=== PATIENT | female | born 1945 | race Caucasian/White ===

== ENCOUNTER 2017-03-22 17:03 | Inpatient (IN) ==
--- NOTE | 2017-03-22 17:05 | Emergency Department Note ---
Disposition Clinical Impression: Hypoxia, Dyspnea Disposition: Admitted As Inpatient Condition: Good General Adult HPI - General Stated complaint: SOB/HTN Time Seen by Provider: 03/22/17 17:04 - Related Data Home Medications Medication Instructions Recorded Confirmed Acetaminophen [Tylenol] 500 mg PO QAM PRN 03/02/15 03/22/17 Aspirin Enteric Coated [Aspirin EC] 81 mg PO QAM 03/02/15 03/22/17 Clopidogrel [Plavix] 75 mg PO QAM 03/02/15 03/22/17 Cyanocobalamin (B-12) [Vitamin B12] 1,000 mcg PO DAILY 12/29/15 03/22/17 Nitroglycerin 0.4 mg SL Q5MIN PRN 12/29/15 03/22/17 Calcium Carbonate/Vitamin D3 1 tab PO DAILY 01/04/16 03/22/17 [Calcium 600 + Vit D Tablet] Levothyroxine [Synthroid] [place] [address]/22/17 03/22/17 Previous Rx's Medication Instructions Recorded Furosemide [Lasix] 40 mg PO QAM #30 tablet 03/25/15 Lisinopril [Zestril] 20 mg PO DAILY #30 tablet 06/30/16 Anastrozole [Arimidex] 1 mg PO DAILY #90 tablet 10/24/16 Allergies Allergy/AdvReac Type Severity Reaction Status Date / Time simvastatin AdvReac Nausea Verified 03/22/17 17:16 Past Medical History - Past Medical History Medical history: Reports: asthma, atrial fibrillation, cancer, cardiomyopathy, CHF, coronary artery disease, diabetes, GERD, hyperlipidemia, hypertension, liver disease, myocardial infarction, thyroid disease, other Surgical history: Reports: angioplasty/stent, appendectomy, cancer surgery, cholecystectomy, coronary bypass (CABG), hysterectomy Psychiatric history: Reports: no psych history - Social History Smoking Status: Unknown if ever smoked Smokeless Tobacco Status: No Alcohol use: Reports: unknown Drug use: Reports: none Course Vital Signs Temperature 97.6 F 03/22/17 17:05 Pulse Rate 70 03/22/17 17:05 Respiratory Rate 20 03/22/17 17:05 Blood Pressure 179/100 03/22/17 17:05 O2 Sat by Pulse Oximetry 100 03/22/17 17:05 Temperature 98 F 03/23/17 07:23 Pulse Rate 74 03/23/17 07:23 Respiratory Rate 16 03/23/17 07:23 Blood Pressure 139/82 03/23/17 07:23 O2 Sat by Pulse Oximetry 99 03/23/17 07:23 Oxygen Delivery Oxygen Delivery Room Air Medical Decision Making - Lab Data Result diagrams: 03/23/17 04:43 03/23/17 04:43 Lab Results 03/22/17 03/22/17 03/22/17 Range/Units 17:23 17:23 17:23 WBC 4.3 (4.3-11.1) K/mcL RBC 4.22 (3.82-4.97) M/mcL Hgb 12.4 (11.5-15.4) g/dL Hct 39.2 (35.3-44.9) % MCV 92.9 (83.0-100.0) fL MCH 29.4 (28.0-33.3) pg MCHC 31.6 (31.6-35.5) g/dL RDW 14.7 H (11.5-14.5) % Plt Count 124 L (140-400) K/mcL MPV 11.3 (9.4-12.4) fL Immature Gran % 0.5 (0-4) % Seg Neutrophils % 65.2 % Lymphocytes % 23.1 % Monocytes % 8.2 % Eosinophils % 2.1 % Basophils % 0.9 % Neutrophils # 2.8 (1.6-8.9) K/mcL Lymphocytes # 1.0 (0.6-4.6) K/mcL Monocytes # 0.4 (0.0-1.3) K/mcL Eosinophils # 0.1 (0.0-0.6) K/mcL Basophils # 0.0 (0.0-0.2) K/mcL Immature Plt Fraction 7.5 H (1.1-6.1) % Sodium 139 (136-145) mEq/L Potassium 3.9 (3.5-4.5) mEq/L Chloride 103 (98-109) mEq/L Carbon Dioxide 28 (19-29) mEq/L BUN 19 (7-20) mg/dL Creatinine 1.14 H (0.57-1.11) mg/dL Est GFR ( Amer) 57 L (> 60) Est GFR (Non-Af Amer) 47 L (> 60) BUN/Creatinine Ratio 17 (6-26) Glucose 167 H (70-99) mg/dL Calculated Osmolality 294 (280-300) Calcium 9.1 (8.6-10.8) mg/dL Troponin I 0.03 (0-0.03) ng/mL B-Natriuretic Peptide (0-100) pg/mL 03/22/17 Range/Units 17:23 WBC (4.3-11.1) K/mcL RBC (3.82-4.97) M/mcL Hgb (11.5-15.4) g/dL Hct (35.3-44.9) % MCV (83.0-100.0) fL MCH (28.0-33.3) pg MCHC (31.6-35.5) g/dL RDW (11.5-14.5) % Plt Count (140-400) K/mcL MPV (9.4-12.4) fL Immature Gran % (0-4) % Seg Neutrophils % % Lymphocytes % % Monocytes % % Eosinophils % % Basophils % % Neutrophils # (1.6-8.9) K/mcL Lymphocytes # (0.6-4.6) K/mcL Monocytes # (0.0-1.3) K/mcL Eosinophils # (0.0-0.6) K/mcL Basophils # (0.0-0.2) K/mcL Immature Plt Fraction (1.1-6.1) % Sodium (136-145) mEq/L Potassium (3.5-4.5) mEq/L Chloride (98-109) mEq/L Carbon Dioxide (19-29) mEq/L BUN (7-20) mg/dL Creatinine (0.57-1.11) mg/dL Est GFR ( Amer) (> 60) Est GFR (Non-Af Amer) (> 60) BUN/Creatinine Ratio (6-26) Glucose (70-99) mg/dL Calculated Osmolality (280-300) Calcium (8.6-10.8) mg/dL Troponin I (0-0.03) ng/mL B-Natriuretic Peptide 175 H (0-100) pg/mL Attestation Statement - Attestation Attestation: I examined this patient and my medical decision-making was reviewed with the Resident Physician. I agree with the documented findings, disposition and treatment plan as described except to the extent set forth below. [id number] time provided Patient arrives by EMS complaining of dyspnea. She is visibly dyspneic on exam. She does have bilateral symmetric lower extremity peripheral edema. Patient seen in conjunction with the resident physician Dr. Joy
--- NOTE | 2017-03-22 17:11 | Emergency Department Note ---
Disposition Clinical Impression: Hypoxia Dyspnea Qualifiers: Dyspnea type: dyspnea on exertion Qualified Code(s): R06.09 - Other forms of dyspnea Disposition: Admitted As Inpatient Condition: Good Referrals: Joseph Cedeno DO [Primary Care Provider] - Time of Disposition: 18:19 General Adult HPI - General Stated complaint: SOB/HTN Time Seen by Provider: 03/22/17 17:04 Nursing Notes Reviewed: Yes Vital Signs Reviewed: Yes - History of Present Illness HPI Narrative: Female patient presents emergency department complaining of one-day history of shortness of breath. She states that she gets dyspneic on exertion. Denies any chest pain nausea vomiting or abdominal pain. Denies any inciting events. - Related Data Home Medications Medication Instructions Recorded Confirmed Acetaminophen [Tylenol] 500 mg PO QAM PRN 03/02/15 06/29/16 Aspirin Enteric Coated [Aspirin EC] 81 mg PO QAM 03/02/15 06/29/16 Clopidogrel [Plavix] 75 mg PO QAM 03/02/15 06/29/16 Cyanocobalamin (B-12) [Vitamin B12] 1,000 mcg PO DAILY 12/29/15 06/29/16 Nitroglycerin 0.4 mg SL Q5MIN PRN 12/29/15 06/29/16 Calcium Carbonate/Vitamin D3 1 tab PO DAILY 01/04/16 06/30/16 [Calcium 600 + Vit D Tablet] Carvedilol [Coreg] 6.25 mg PO BIDWM 06/30/16 06/30/16 Cholecalciferol (Vitamin D3) 50,000 unit PO QWEEK 06/30/16 06/30/16 [Vitamin D] amLODIPine [Norvasc] 5 mg PO DAILY 06/30/16 06/30/16 Previous Rx's Medication Instructions Recorded Furosemide [Lasix] 40 mg PO QAM #30 tablet 03/25/15 Levothyroxine [Synthroid] 100 [place] 0630 tablet 06/30/16 Lisinopril [Zestril] 20 mg PO DAILY #30 tablet 06/30/16 Anastrozole [Arimidex] 1 mg PO DAILY #90 tablet 10/24/16 Allergies Allergy/AdvReac Type Severity Reaction Status Date / Time simvastatin AdvReac Nausea Verified 03/22/17 17:16 All systems ED: reviewed and negative except as stated. Constitutional: Denies: fever, chills, weakness ENT ED: Denies: congestion Cardiovascular: Reports: dyspnea on exertion. Denies: chest pain, palpitations , syncope Respiratory: Reports: cough, dyspnea. Denies: sputum production Gastrointestinal: Denies: abdominal pain, nausea, vomiting, diarrhea, hematemesis, melena, hematochezia Genitourinary: Denies: urgency, dysuria, frequency, hematuria, discharge Musculoskeletal: Denies: back pain, neck pain Integumentary: Denies: rash, abrasion, lesions Neurological: Denies: headache, weakness, numbness, paresthesias Past Medical History - Past Medical History Attestation: Yes The following information was validated with the patient. Source: patient Medical history: Reports: asthma, atrial fibrillation, cancer, cardiomyopathy, CHF, coronary artery disease, diabetes, GERD, hyperlipidemia, hypertension, liver disease, myocardial infarction, thyroid disease, other Surgical history: Reports: angioplasty/stent, appendectomy, cancer surgery, cholecystectomy, coronary bypass (CABG), hysterectomy Psychiatric history: Reports: no psych history - Social History Smoking Status: Unknown if ever smoked Smokeless Tobacco Status: No Alcohol use: Reports: unknown Drug use: Reports: none Physical Exam - General Limitations: no limitations General appearance: alert, in no apparent distress - Head Head exam: atraumatic, normocephalic, normal inspection - Eye Eye exam: Present: normal appearance, PERRL, EOMI. Absent: scleral icterus - ENT ENT exam: normal exam, normal oropharynx, mucous membranes moist - Neck Neck exam: Present: normal inspection, full ROM, trachea midline - Chest Chest inspection: Present: normal inspection, symmetric chest wall rise - Respiratory Respiratory exam: Present: normal lung sounds bilaterally. Absent: respiratory distress, wheezes, stridor, accessory muscle use, prolonged expiratory phase - Cardiovascular Cardiovascular exam: Present: regular rate, normal rhythm, normal heart sounds - Abdominal Exam Abdominal exam: Present: soft, Non-Tender, normal bowel sounds. Absent: tenderness, distention, guarding, rebound, rigidity, organomegaly - Extremities Exam Extremities exam: Present: normal inspection, full ROM, normal capillary refill. Absent: tenderness, pedal edema - Back Exam Back exam: Present: normal inspection, full ROM. Absent: tenderness, CVA tenderness (R), CVA tenderness (L) - Neurological Exam Neurological exam: Present: alert, oriented X3, normal gait. Absent: motor sensory deficit - Psychiatric Psychiatric exam: Present: normal affect, normal mood - Skin Skin exam: Present: warm, dry, intact, normal color. Absent: rash, cyanosis, diaphoresis, erythema Course Course Narrative: Female patient presents to the emergency department, complaining of one day history of dyspnea. She states she has dyspnea on exertion as well. His have a history of COPD and CHF. States that she is not chronically on oxygen but when EMS placed her on oxygen she started to feel little better. Denies any fevers or chills. States that she does have a cough that is nonproductive. Denies any chest pain. Reports swelling to her bilateral lower extremities. She states that her right is swollen a little more than it generally is. They are swollen equally bilaterally. She states generally her left leg is a lot larger than right. On exam she is not appear to be in any distress currently. Her lung sounds are clear. Her heart tones are normal. Her abdomen is soft and nontender. Patient states that she can generally walk farther without getting short of breath and she can at this time. We will do a cardiac workup on patient and get her a chest x-ray as well. - Reevaluation(s) Reevaluation #1: Patient's workup was benign. She however had an ambulation trial. Her oxygen saturation dropped to 82%. We will admit patient for hypoxia. Of note she has been hypertensive down here. She denies any visual problems, headaches, or chest pain. I discussed her hypertension with her in the patient states that she was supposed to start some lisinopril tomorrow. She is very concerned about this. She states that she has been given blood pressure medication previously and her blood pressure has bottomed out every time. She expresses concern that last time she was admitted she received blood pressure medication and was taken to the floor. She states that there she then had a recent her blood pressure and a rapid response was called. She is refusing antihypertensive medication while down here. She states that she will reconsider this whenever she is on the floor. I will relay this to the hospitalist. Time: 18:15 - Consultations Consultation #1: BERRY Thompson accepted Pt in stable condition. Time: 18:30 Vital Signs Temperature 97.6 F 03/22/17 17:05 Pulse Rate 70 03/22/17 17:05 Respiratory Rate 20 08/26/17 17:05 Blood Pressure 179/100 03/22/17 17:05 O2 Sat by Pulse Oximetry 100 03/22/17 17:05 Temperature 97.6 F 03/22/17 17:05 Pulse Rate 78 03/22/17 18:02 Respiratory Rate 18 03/22/17 18:02 Blood Pressure 185/108 03/22/17 18:02 O2 Sat by Pulse Oximetry 100 03/22/17 18:02 Oxygen Delivery Oxygen Delivery Room Air Medical Decision Making - Medical Records Medical records reviewed: Yes I reviewed the patient's medical records. - Lab Data Lab results reviewed: Yes I reviewed the patient's lab results. Result diagrams: 03/22/17 17:23 03/22/17 17:23 Lab Results 03/22/17 03/22/17 03/22/17 Range/Units 17:23 17:23 17:23 WBC 4.3 (4.3-11.1) K/mcL RBC 4.22 (3.82-4.97) M/mcL Hgb 12.4 (11.5-15.4) g/dL Hct 39.2 (35.3-44.9) % MCV 92.9 (83.0-100.0) fL MCH 29.4 (28.0-33.3) pg MCHC 31.6 (31.6-35.5) g/dL RDW 14.7 H (11.5-14.5) % Plt Count 124 L (140-400) K/mcL MPV 11.3 (9.4-12.4) fL Immature Gran % 0.5 (0-4) % Seg Neutrophils % 65.2 % Lymphocytes % 23.1 % Monocytes % 8.2 % Eosinophils % 2.1 % Basophils % 0.9 % Neutrophils # 2.8 (1.6-8.9) K/mcL Lymphocytes # 1.0 (0.6-4.6) K/mcL Monocytes # 0.4 (0.0-1.3) K/mcL Eosinophils # 0.1 (0.0-0.6) K/mcL Basophils # 0.0 (0.0-0.2) K/mcL Immature Plt Fraction 7.5 H (1.1-6.1) % Sodium 139 (136-145) mEq/L Potassium 3.9 (3.5-4.5) mEq/L Chloride 103 (98-109) mEq/L Carbon Dioxide 28 (19-29) mEq/L BUN 19 (7-20) mg/dL Creatinine 1.14 H (0.57-1.11) mg/dL Est GFR ( Amer) 57 L (> 60) Est GFR (Non-Af Amer) 47 L (> 60) BUN/Creatinine Ratio 17 (6-26) Glucose 167 H (70-99) mg/dL Calculated Osmolality 294 (280-300) Calcium 9.1 (8.6-10.8) mg/dL Troponin I 0.03 (0-0.03) ng/mL B-Natriuretic Peptide (0-100) pg/mL 03/22/17 Range/Units 17:23 WBC (4.3-11.1) K/mcL RBC (3.82-4.97) M/mcL Hgb (11.5-15.4) g/dL Hct (35.3-44.9) % MCV (83.0-100.0) fL MCH (28.0-33.3) pg MCHC (31.6-35.5) g/dL RDW (11.5-14.5) % Plt Count (140-400) K/mcL MPV (9.4-12.4) fL Immature Gran % (0-4) % Seg Neutrophils % % Lymphocytes % % Monocytes % % Eosinophils % % Basophils % % Neutrophils # (1.6-8.9) K/mcL Lymphocytes # (0.6-4.6) K/mcL Monocytes # (0.0-1.3) K/mcL Eosinophils # (0.0-0.6) K/mcL Basophils # (0.0-0.2) K/mcL Immature Plt Fraction (1.1-6.1) % Sodium (136-145) mEq/L Potassium (3.5-4.5) mEq/L Chloride (98-109) mEq/L Carbon Dioxide (19-29) mEq/L BUN (7-20) mg/dL Creatinine (0.57-1.11) mg/dL Est GFR ( Amer) (> 60) Est GFR (Non-Af Amer) (> 60) BUN/Creatinine Ratio (6-26) Glucose (70-99) mg/dL Calculated Osmolality (280-300) Calcium (8.6-10.8) mg/dL Troponin I (0-0.03) ng/mL B-Natriuretic Peptide 175 H (0-100) pg/mL - Radiology Data Radiology results reviewed: Yes I reviewed the patient's radiology results. Chest X-Ray 03/22/17 17:08 IMPRESSION: 1. No acute cardiopulmonary disease. D/ / Ja Schroeder MD / Ja Schroeder MD Interpreting Provider: Ja Schroeder MD - EKG Data EKG #1 EKG attestation: Yes I reviewed and interpreted this EKG. EKG results narrative: Normal sinus rhythm with first-degree AV block. ND interval was not measured however it is elongated. QRS duration is 112. QT is 389. QTC is 413. No signs of acute ischemia. No significant change from EKG dated 06/29/2016.
[2017-03-22 17:30] LABS: Basophils % 0.9 %; Eosinophils # 0.1 K/mcL (0.0-0.6); Eosinophils % 2.1 %; Hematocrit 39.2 % (35.3-44.9); Hemoglobin 12.4 g/dL (11.5-15.4); Immature Granulocytes % 0.5 % (0-4); Immature Platelets 7.5 % (1.1-6.1); Lymphocytes % 23.1 %; Mean Corpuscular HGB Conc 31.6 g/dL (31.6-35.5); Mean Corpuscular Hemoglobin 29.4 pg (28.0-33.3); Mean Corpuscular Volume 92.9 fL (83.0-100.0); Mean Platelet Volume 11.3 fL (9.4-12.4); Monocytes # 0.4 K/mcL (0.0-1.3); Monocytes % 8.2 %; Neutrophils # 2.8 K/mcL (1.6-8.9); Platelet Count 124 K/mcL (140-400); Red Blood Count 4.22 M/mcL (3.82-4.97); Red Cell Distribution Width 14.7 % (11.5-14.5); Segmented Neutrophils % 65.2 %
[2017-03-22 17:46] LABS: Calcium 9.1 mg/dL (8.6-10.8); Potassium 3.9 mEq/L (3.5-4.5)
[2017-03-22] MEDS ORDERED: Naloxone 0.4 MG/ML INJ IVP PRN (19:38)
--- NOTE | 2017-03-22 19:58 | Internal Med History&Physical ---
<Nadia Lara - Last Filed: 03/22/17 21:38> Date of Encounter: 03/22/17 Time of Encounter: 19:50 Assessment and Plan (1) Dyspnea Current visit: Yes Status: Acute 1 patient has been experiencing increasing short of breath on exertion which is relieved with rest. She denies any chest pain, however she did have some R sided neck pain that resolved. This may be multifactoral, HTN CHF afib and possible COPD could be playing a role We will trend troponins. 2 continuous cardiac monitoring 3 continue with oxygen titrated to maintain SPO2 greater than 92% 4 she does have significant systolic heart failure as well as some hypertension and atrial fibrillation which could be contributing to her dyspnea and hypoxia. We will obtain cardiac echo. Clinically she does not appeared to be in fluid overload we will just give 1 dose of IV Lasix . We will adjust her Coreg to 12.5 twice a day. 5 we will rule out possibility of PE VQ scan due to patient has CK D 6 patient is exposed to secondhand smoke we will order PFTs as an outpatient Qualifiers: Dyspnea type: dyspnea on exertion Qualified Code(s): R06.09 - Other forms of dyspnea (2) Systolic heart failure, chronic Current visit: No Status: Chronic 1 hx of systolic HF with EF 35% she is on Lasix 40 mg daily she has chronic lower shoulder with swelling-she does not appear to be clinically in fluid overload, we will give one IV dose of Lasix and continue with her oral 2 monitor intake and output daily weight 3 with sodium diet 4 cardiac echo (3) CAD (coronary artery disease) Current visit: No Status: Chronic 1 she does have past history of coronary disease with stents will continue with her aspirin and Plavix statin as well as her Coreg. We will trend troponins 2 continue his cardiac monitoring 3 nitrates as needed Qualifiers: Coronary Disease-Associated Artery/Lesion type: bypass graft [place] vs. transplanted heart: [place] heart Associated angina: with unstable angina Qualified Code(s): I25.700 - Atherosclerosis of coronary artery bypass graft(s) , unspecified, with unstable angina pectoris (4) Atrial fibrillation Current visit: No Status: Chronic 1 is alive she appears to be in atrial fibrillation rate is controlled. She is not on any anticoagulation she is on aspirin and Plavix will continue with her Coreg. Not sure why patient is not on any anticoagulation-Saud Vasc score is 5- H Age sex CHF history hypertension history and diabetes. This will need to be address with patient per day team Qualifiers: Atrial fibrillation type: paroxysmal Qualified Code(s): I48.0 - Paroxysmal atrial fibrillation (5) Hypothyroidism Current visit: No Status: Chronic Obtain TSH continue with Synthroid Qualifiers: Hypothyroidism type: unspecified Qualified Code(s): E03.9 - Hypothyroidism , unspecified (6) Hypertension Current visit: No Status: Chronic 1 we will increase her Coreg to 12.5 twice a day as well as will continue her lisinopril. We will continue with Lasix 2 low sodium diet Qualifiers: Hypertension type: essential hypertension Qualified Code(s): I10 - Essential (primary) hypertension (7) DVT prophylaxis Current visit: No Status: Acute 1 Heparin subcutaneous Internal Medicine - H&P: HPI Chief complaint: SOB Admitted From: Emergency Dept Plans for Post Hospital Care: Home History of present illness: Ms. Lemos is a 71 year old female has history of CABG with 5 stents recent stent 2014 systolic heart failure atrial fib diabetes CK D3 breast cancer. Patient has been experiencing increasing shortness of breath on exertion she denies any chest pain or palpitations however she did experience some right- sided neck shoulder discomfort as well as some left arm numbness which resolved on its own and lasted just a few seconds. Shortness of breath improved with rest. She is normally not on any oxygen at home she does not have a cough fevers chills abdominal pain nausea or vomiting. She has chronic swelling to her lower extremities bilaterally. Shortness of breath continued throughout the day she became concerned and presented to the ER for evaluation. According to ER records for presentation patient appeared to be dyspneic and was placed on oxygen. Her respiratory state did not improve. Lab work was obtained which showed no leukocytosis creatinine was 1.14 which appears below her baseline troponin was 0.03 BNP was 175 which has been higher in the past. Chest x-ray was with no acute process. EKG was in atrial fibrillation rate is 72 nonspecific T-wave abnormalities. ER staff attempted to able a patient with oxygen sats did drop down into the 80s during ambulation. She has been admitted for further workup evaluation. Presently patient does not appear to be in respiratory distress she denies any shortness breath or chest pain at this time. Her lung sounds are clear throughout heart sounds are regular S1 and S2 with no rubs clicks murmurs noted. Abdomen soft nontender she does have lower extremity edema bilaterally. She is on oxygen 2 L nasal cannula. She is a little hypertensive with systolic 180 diastolic 100 this time Past Med Surg Social Fam HX - Past Medical History Medical history: asthma, atrial fibrillation, cancer, cardiomyopathy, CHF, coronary artery disease, diabetes, GERD, hyperlipidemia, hypertension, liver disease, myocardial infarction, thyroid disease, other Psychiatric history: no psych history - Past Surgical History Surgical History: angioplasty/stent, appendectomy, cancer surgery, cholecystectomy, coronary bypass (CABG), hysterectomy - Social History Smoking Status: Unknown if ever smoked Smokeless Tobacco Status: No Alcohol use: unknown Drug use: none - Family History Mother Family Member Ethnicity: Non- Living Status: Hx Family Cardiac Disorders: Yes (Coronary artery disease, hypertension) Hx Family Endocrine Disorder: Yes (Diabetes) Hx Family Neurologic Disorders: Yes (CVA) Brother Hx Family Endocrine Disorder: Yes (Diabetes) Sister Hx Family Cancer: Yes (Lung cancer) Hx Family Endocrine Disorder: Yes (Diabetes) Internal Medicine - H&P: Meds Acetaminophen [Tylenol] 500 mg PO QAM PRN 03/02/15 [History] Aspirin Enteric Coated [Aspirin EC] 81 mg PO QAM 03/02/15 [History] Clopidogrel [Plavix] 75 mg PO QAM 03/02/15 [History] Furosemide [Lasix] 40 mg PO QAM #30 tablet 03/25/15 [Rx] Cyanocobalamin (B-12) [Vitamin B12] 1,000 mcg PO DAILY 12/29/15 [History] Nitroglycerin 0.4 mg SL Q5MIN PRN 12/29/15 [History] Calcium Carbonate/Vitamin D3 [Calcium 600 + Vit D Tablet] 1 tab PO DAILY [History] Lisinopril [Zestril] 20 mg PO DAILY #30 tablet 06/30/16 [Rx] Anastrozole [Arimidex] 1 mg PO DAILY #90 tablet 10/24/16 [Rx] Levothyroxine [Synthroid] 125 mcg PO 0630 03/22/17 [History] 3 Allergy/AdvReac Type Severity Reaction Status Date / Time simvastatin AdvReac Nausea Verified 03/22/17 17:16 All Systems PM: A 10-system review of systems was performed and is negative for pertinent findings except as documented above in the HPI. - Constitutional Constitutional: no chills, no fever(s), no night sweats - EENT Eyes: no change in vision, no discharge, no pain, no photophobia Nose, mouth and throat: no dysphagia, no nasal discharge, no neck pain, no sore throat - Cardiovascular Cardiovascular ROS IM: dyspnea on exertion, edema, no chest pain, no diaphoresis , no dyspnea, no lightheadedness, no palpitations, no syncope - Respiratory Respiratory: cough, dyspnea on exertion, wheezing, no dyspnea, no excessive phlegm production - Gastrointestinal Gastrointestinal: no abdominal pain, no diarrhea, no hematemesis, no hematochezia, no melena, no nausea, no vomiting - Genitourinary Genitourinary: no change in urinary stream, no dysuria, no flank pain, no hematuria - Musculoskeletal Musculoskeletal ROS IM: no numbness, no tingling - Integumentary Integumentary IM: no rash, no unusual bruising - Neurological Neurological ROS: no confusion, no convulsions, no focal weakness, no numbness, no tingling, no tremor(s) - Hematologic/Lymphatic Hematologic/Lymphatic: no easy bruising - Constitutional Vitals: Temp Pulse Resp BP Pulse Ox 98.0 F 68 16 191/93 100 03/22/17 19:08 03/22/17 19:08 03/22/17 19:08 03/22/17 19:08 03/22/17 19:08 General appearance: Present: A&O X 3, answers questions appropriately - Head Head exam: Present: atraumatic, normocephalic - Eye Eye exam: Present: PERRL, conjuntiva pink, sclera anicteric Pupils: Present: PERRL - Neck Neck exam general surgery: Present: supple, trachea midline. Absent: lymphadenopathy - Respiratory Respiratory exam: Present: CTAB. Absent: accessory muscle use, rales, rhonchi, wheezes - Cardiovascular Cardiovascular exam: Present: RRR, +S1, +S2. Absent: diastolic murmur, gallop, rubs, systolic murmur - GI/Abdominal GI/Abdominal exam: Present: normal bowel sounds, soft, no peritoneal signs. Absent: distended, tenderness - Extremities Exam Extremities exam: Present: pedal edema - Neurological Exam Neurological exam: Present: CN II-XII intact, oriented X3, no focal deficits. Absent: pronater drift, facial droop, speech deficit - Skin Skin exam: Present: dry, intact Internal Med - H&P Results - Labs CBC & Chem 7: 03/22/17 17:23 03/22/17 17:23 - EKG Data Prior EKG available for review: yes EKG comments: 03/22/17 20:07 Afib - previous EKG with SR 03/22/17 20:07 - Diagnostic Studies Other Images Additional comments: Chest X-Ray 03/22/17 17:08 IMPRESSION: 1. No acute cardiopulmonary disease. D/ / Ja Schroeder MD / Ja Schroeder MD Interpreting Provider: Ja Schroeder MD <[email or web address] W - Last Filed: 03/22/17 22:44> Date of Encounter: 03/22/17 Internal Medicine - H&P: HPI History of present illness: Ms. Lemos is a 71 year old female All Systems PM: A 10-system review of systems was performed and is negative for pertinent findings except as documented above in the HPI. - Constitutional Vitals: Temp Pulse Resp BP Pulse Ox 98.0 F 68 16 191/93 100 03/22/17 19:08 03/22/17 19:08 03/22/17 19:08 03/22/17 19:08 03/22/17 19:08 Internal Med - H&P Results - Labs CBC & Chem 7: 03/22/17 17:23 03/22/17 17:23 - Attending Attestation Seen/examined. 71W with dyspnea/hypoxia on ambulation. Uncontrolled HTN. HFrEF. Not in fluid overload though has some peripheral edema. Optimize BP control. Lasix IV x 1. Check VQ scan, r/o PE. OP PFTs, history of second hand smoke exposure. Discussion with cardiology about anticoagulation due to history of a- fib, may need to stop Plavix to avoid triple therapy.
[2017-03-22] MEDS ORDERED: Furosemide 40 MG/4 ML VIAL IVP SCH (20:30)
[2017-03-22] MEDS ORDERED: Furosemide 40 MG/4 ML VIAL IVP ONE (20:34)
[2017-03-22] MEDS ORDERED: Furosemide 20 MG/2 ML VIAL IVP ONE (20:43)
[2017-03-22] MEDS ORDERED: Nitroglycerin 0.4 MG TAB.SUBL SL PRN (21:35)
--- NOTE | 2017-03-22 23:41 | Event Note ---
Date of Encounter: 03/22/17 Time of Encounter: 23:40 Noted troponin 0.04, no chest pain, will recheck in 6 hours
[2017-03-23 05:02] LABS: Basophils % 0.7 %; Eosinophils # 0.1 K/mcL (0.0-0.6); Eosinophils % 3.2 %; Hematocrit 39.1 % (35.3-44.9); Hemoglobin 12.5 g/dL (11.5-15.4); Immature Granulocytes % 0.7 % (0-4); Lymphocytes # 1.1 K/mcL (0.6-4.6); Lymphocytes % 27.3 %; Mean Corpuscular Hemoglobin 29.3 pg (28.0-33.3); Mean Corpuscular Volume 91.8 fL (83.0-100.0); Mean Platelet Volume 11.3 fL (9.4-12.4); Monocytes # 0.4 K/mcL (0.0-1.3); Monocytes % 10.6 %; Neutrophils # 2.3 K/mcL (1.6-8.9); Platelet Count 116 K/mcL (140-400); Red Blood Count 4.26 M/mcL (3.82-4.97); Red Cell Distribution Width 14.8 % (11.5-14.5); Segmented Neutrophils % 57.5 %
[2017-03-23 05:15] LABS: Calcium 9.1 mg/dL (8.6-10.8); Magnesium 2.2 mg/dL (1.6-2.6); Potassium 3.6 mEq/L (3.5-4.5)
[2017-03-23 05:36] LABS: Thyroid Stimulating Hormone 8.942 mcIU/mL (0.350-4.840)
[2017-03-23] MEDS: Furosemide 40 MG TABLET PO SCH (08:13)
[2017-03-23] MEDS: Lisinopril 20 MG TABLET PO SCH (08:13)
[2017-03-23] MEDS: Anastrozole 1 MG TABLET PO SCH (08:13)
[2017-03-23] MEDS: Aspirin Enteric Coated 81 MG Tablet PO SCH (08:13)
[2017-03-23] MEDS: Patient Taking Own Medication 1 EACH PO SCH (08:16)
[2017-03-23] MEDS ORDERED: Lisinopril 20 MG TABLET PO SCH (09:00)
[2017-03-23 10:32] LABS: Triiodothyronine (T3) Total 0.93 ng/mL (0.58-1.59)
--- NOTE | 2017-03-23 18:34 | Internal Med Progress Note ---
Date of Encounter: 03/23/17 Time of Encounter: 17:45 - Assessment and plan (1) Dyspnea Current Visit: Yes Status: Acute Assessment and plan: Patient currently denies shortness of breath above her norm. She states she has been able to ambulate to the bedside commode without limitation. Echocardiogram unchanged from prior readings. We are attempting to control her blood pressure, will observe overnight and likely discharge tomorrow pending clinical outcomes. Of note, repeat echocardiogram recommended with Definity- pending. VQ scan negative. ITS Impressions Chest X-Ray 03/22/17 17:08 IMPRESSION: 1. No acute cardiopulmonary disease. D/ / Ja Schroeder MD / Ja Schroeder MD Interpreting Provider: aJ Schroeder MD Pulmonary Perfusion Imaging 03/22/17 20:34 IMPRESSION: Very low probability for pulmonary embolism. D/ / Chinedu Davies MD / Chinedu Davies MD Interpreting Provider: Chinedu Davies MD Chest X-Ray 03/23/17 12:20 IMPRESSION: Stable portable study D/ / Zakiya Renteria Cha, MD / Zakiya Renteria Cha, MD Interpreting Provider: Zakiya Renteria Cha, MD (2) CHF (congestive heart failure) Current Visit: No Status: Chronic Assessment and plan: Echocardiogram revealing ejection fraction of 35% with indeterminate diastolic function. She is on diuretics at home. On examination, she is euvolemic. 2. Today's echo with echocardiogram from May 2016 without acute changes. Chronic combined heart failure without acute exacerbation. Echocardiogram with recommendation to repeat with Def[facility]-Will order at this time. Echocardiogram impressions: LVEF 35%. Mild concentric left ventricular hypertrophy. Indeterminate diastolic function. Global left ventricular systolic dysfunction. Normal right ventricular structure and function. Mild mitral regurgitation. No evidence of pulmonary hypertension. Recommend repeat study with Def[facility] to evaluate for possible thrombus in the LV apex. (3) Elevated troponin I level Current Visit: Yes Status: Acute Assessment and plan: Mild, stable, adynamic and peaking at 0.04. Patient denies chest pain. Consistent with accelerated hypertension. (4) CKD (chronic kidney disease) stage 3, GFR 30-59 ml/min Current Visit: Yes Status: Chronic Assessment and plan: Stable and consistent with her baseline. (5) Anxiety Current Visit: No Status: Chronic Assessment and plan: Mood and affect stable (6) DVT prophylaxis Current Visit: No Status: Acute Assessment and plan: We will avoid heparin given her mild thrombocytopenia. Observation patient. IPC's ordered. (7) CAD (coronary artery disease) Current Visit: No Status: Chronic Assessment and plan: Patient denies chest pain or shortness of breath. Qualifiers: Coronary Disease-Associated Artery/Lesion type: bypass graft [place] vs. transplanted heart: [place] heart Associated angina: with unstable angina Qualified Code(s): I25.700 - Atherosclerosis of coronary artery bypass graft(s) , unspecified, with unstable angina pectoris (8) Atrial fibrillation Current Visit: No Status: Chronic Assessment and plan: Rate controlled, not on anticoagulation therapy due to her history of Crohn's and prior GI bleeding Qualifiers: Atrial fibrillation type: paroxysmal Qualified Code(s): I48.0 - Paroxysmal atrial fibrillation (9) HTN (hypertension) Current Visit: No Status: Chronic Assessment and plan: Markedly hypertensive upon presentation. She is now normotensive. At home, she takes lisinopril 10 mg daily, furosemide 40 mg daily. Lisinopril dosage was increased to 30 mg daily. Of note, patient stating that if her diastolic pressure ever drops below 80, then she feels as if she has no energy and feels miserable. We will continue to trend and adjust medications as indicated. Possible discharge tomorrow pending clinical outcomes. Qualifiers: Hypertension type: unspecified Qualified Code(s): I10 - Essential (primary ) hypertension (10) Dyslipidemia Current Visit: No Status: Chronic Assessment and plan: Lipid panel abnormal with LDL 204 total cholesterol 209. Patient has an intolerance to [id number] outpatient low-cholesterol diet recommended. (11) Hypothyroidism Current Visit: No Status: Chronic Assessment and plan: TSH was elevated however T3 and free T4 both normal. Follow-up outpatient Qualifiers: Hypothyroidism type: unspecified Qualified Code(s): E03.9 - Hypothyroidism , unspecified - Subjective Interval history: Patient seen and examined. On examination, patient sitting upright in her bed reading the newspaper. Patient stating she is feeling better. She states her shortness of breath has almost returned down to its baseline. She states she has been able to get up to ambulate to the bedside commode without limitation, lightheadedness, or dizziness. She is endorsing a normal appetite. Denies pain at this time. - Constitutional Vitals: Temp Pulse Resp BP Pulse Ox 97.9 F 72 16 112/76 97 03/23/17 15:20 03/23/17 15:20 03/23/17 15:20 03/23/17 15:20 03/23/17 15:20 General appearance: Present: A&O X 3, pleasant, no acute distress, answers questions appropriately - Head Head exam: Present: atraumatic, normocephalic - Eye Eye exam: Present: PERRL, conjuntiva pink, sclera anicteric Pupils: Present: PERRL - Neck Neck exam general surgery: Present: supple, trachea midline. Absent: lymphadenopathy - Respiratory Respiratory exam: Present: CTAB. Absent: accessory muscle use, rales, respiratory distress, rhonchi, wheezes - Cardiovascular Cardiovascular exam: Present: RRR, +S1, +S2. Absent: diastolic murmur, gallop, rubs, systolic murmur - GI/Abdominal GI/Abdominal exam: Present: normal bowel sounds, soft, no peritoneal signs. Absent: distended, tenderness - Extremities Exam Extremities exam: Present: warm, radial pulses palpable and symmetrical. Absent : calf tenderness, cyanotic, pedal edema - Neurological Exam Neurological exam: Present: alert, CN II-XII intact, normal gait, oriented X3, no focal deficits, strengths equal and symetr throughout. Absent: pronater drift, facial droop, speech deficit - Skin Skin exam: Present: dry, intact, normal color, warm Internal Medicine: Result - Labs CBC & Chem 7: 03/23/17 04:43 03/23/17 04:43 Labs: Short CBC 03/23/17 Range/Units 04:43 WBC 4.1 L (4.3-11.1) K/mcL Hgb 12.5 (11.5-15.4) g/dL Hct 39.1 (35.3-44.9) % Plt Count 116 L (140-400) K/mcL Neutrophils # 2.3 (1.6-8.9) K/mcL BMP 03/23/17 04:43 Sodium 141 Potassium 3.6 Chloride 102 Carbon Dioxide 32 H BUN 19 Creatinine 1.11 Glucose 133 H Calcium 9.1 Cardiac Enzymes 03/22/17 03/23/17 Range/Units 23:03 04:43 Troponin I 0.04 H* 0.04 H* (0-0.03) ng/mL - Impressions Impressions Pulmonary Perfusion Imaging 03/22/17 20:34 IMPRESSION: Very low probability for pulmonary embolism. D/ / Chinedu Davies MD / Chinedu Davies MD Interpreting Provider: Chinedu Davies MD Chest X-Ray 03/23/17 12:20 IMPRESSION: Stable portable study D/ / Zakiya Renteria Cha, MD / Zakiya Renteria Cha, MD Interpreting Provider: Zakiya Renteria Cha, MD Consult Discharge Plan - Plan
[2017-03-24 05:16] LABS: Calcium 9.3 mg/dL (8.6-10.8); Potassium 3.9 mEq/L (3.5-4.5)
[2017-03-24] MEDS: Aspirin Enteric Coated 81 MG Tablet PO SCH (09:26)
[2017-03-24] MEDS: Furosemide 40 MG TABLET PO SCH (09:26)
[2017-03-24] MEDS: Anastrozole 1 MG TABLET PO SCH (09:27)
[2017-03-24] MEDS: Lisinopril 20 MG TABLET PO SCH (09:28)
[2017-03-24] MEDS: Patient Taking Own Medication 1 EACH PO SCH (09:30)
--- NOTE | 2017-03-24 09:57 | Electrocardiograph Report ---
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
[2017-03-24] MEDS ORDERED: Perflutren Lipid Microsphere 1.3 ML in 0.9 % Sodium Chloride 8.7 ML IVP ONE (10:31)
[2017-03-24 11:58] VITALS: BP 167/83
--- NOTE | 2017-03-24 13:19 | Discharge Summary ---
Date of Encounter: 03/24/17 Time of Encounter: 13:00 - Discharge Diagnosis (1) Dyspnea Priority: Primary Status: Resolved (2) CHF (congestive heart failure) Priority: Secondary Status: Chronic Comments: Echocardiogram revealing ejection fraction of 35% with indeterminate diastolic function. She is on diuretics at home. On examination, she is euvolemic. Compared this visit's echo with echocardiogram from May 2016 without acute changes. Chronic combined heart failure without acute exacerbation. Echocardiogram with recommendation to repeat with Definity-repeat unremarkable. (3) Elevated troponin I level Priority: Primary Status: Acute Comments: Mild, stable, adynamic and peaking at 0.04. Patient denied chest pain while admitted. Consistent with demand ischemia secondary to accelerated hypertension. (4) CKD (chronic kidney disease) stage 3, GFR 30-59 ml/min Priority: Secondary Status: Chronic Comments: Remained stable and consistent with her baseline during this admission. Follow- up outpatient. (5) Anxiety Priority: Secondary Status: Chronic Comments: Mood and affect stable while admitted. (6) DVT prophylaxis Priority: Primary Status: Acute Comments: Avoided heparin given her mild thrombocytopenia. Observation patient. IPC's ordered. (7) CAD (coronary artery disease) Priority: Secondary Status: Chronic Qualifiers: Coronary Disease-Associated Artery/Lesion type: bypass graft [place] vs. transplanted heart: sam[place] heart Associated angina: with unstable angina Qualified Code(s): I25.700 - Atherosclerosis of coronary artery bypass graft(s) , unspecified, with unstable angina pectoris (8) Atrial fibrillation Priority: Secondary Status: Chronic Comments: Rate controlled, not on anticoagulation therapy due to her history of Crohn's and prior GI bleeding Qualifiers: Atrial fibrillation type: paroxysmal Qualified Code(s): I48.0 - Paroxysmal atrial fibrillation (9) HTN (hypertension) Priority: Secondary Status: Chronic Comments: Markedly hypertensive upon presentation. Much better controlled after her Lisinopril dosage was increased. At home, she took lisinopril 10 mg daily, furosemide 40 mg daily. Lisinopril dosage was increased to 30 mg daily. Of note, patient stating that if her diastolic pressure ever drops below 80, then she feels as if she has no energy and feels miserable. Recommend continue daily blood pressure checks and following up outpatient Qualifiers: Hypertension type: unspecified Qualified Code(s): I10 - Essential (primary ) hypertension (10) Dyslipidemia Priority: Secondary Status: Chronic Comments: Lipid panel abnormal with LDL 204 total cholesterol 209. Patient has an intolerance to [id number] outpatient low-cholesterol diet recommended. (11) Hypothyroidism Priority: Secondary Status: Chronic Comments: TSH was elevated however T3 and free T4 both normal. Follow-up outpatient Qualifiers: Hypothyroidism type: unspecified Qualified Code(s): E03.9 - Hypothyroidism , unspecified - Discharge Medications Prescriptions: Lisinopril [Zestril] 30 mg PO DAILY PRN #45 tab PRN Reason: hypertension Home Medications: Acetaminophen [Tylenol] 500 mg PO QAM PRN 03/02/15 [History] Aspirin Enteric Coated [Aspirin EC] 81 mg PO QAM 03/02/15 [History] Clopidogrel [Plavix] 75 mg PO QAM 03/02/15 [History] Furosemide [Lasix] 40 mg PO QAM #30 tablet 03/25/15 [Rx] Nitroglycerin 0.4 mg SL Q5MIN PRN 12/29/15 [History] Calcium Carbonate/Vitamin D3 [Calcium 600 + Vit D Tablet] 1 tab PO DAILY [History] Anastrozole [Arimidex] 1 mg PO DAILY #90 tablet 10/24/16 [Rx] Levothyroxine [Synthroid] 100 mcg PO DAILY 03/22/17 [History] Lisinopril [Zestril] 30 mg PO DAILY PRN #45 tab 03/24/17 [Rx] Allergies/Adverse Reactions: 3 Allergy/AdvReac Type Severity Reaction Status Date / Time simvastatin AdvReac Nausea Verified 03/22/17 17:16 Date of admission: 03/23/17 18:48 Primary care physician: Joseph Cedeno DO Discharging clinician: Nikkie Pratt Anticipated date of discharge: 03/24/17 - Patient Status Disposition: Home, Self-Care Condition: Good Functional capacity at discharge: independent ambulation Overall status at discharge: patient is back to baseline - Discharge Instructions Follow Up With: Joseph Cedeno DO [Primary Care Provider] - Forms: ED Satisfaction Letter Additional Instructions: Follow-up with primary care provider within 1-2 weeks. Check blood pressure daily and keep a log for your primary care provider. - Diet and Activity Activity: increase activity as tolerated Diet: diabetic diet, low fat, low cholesterol (Fluid restriction 1.5 L per day) , low salt diet Hospital course: Ms. Lemos is a 71 year old female with past medical history of CAD status post CABG and stent 5, heart failure, atrial fibrillation, diabetes, chronic kidney disease stage III, breast cancer, GERD, hyperlipidemia, hypertension, appendectomy, cholecystectomy, hysterectomy. Patient presented to the emergency department chief complaint of increasing shortness of breath on exertion. She denied chest pain, palpitations. She did endorse right-sided neck and shoulder discomfort as well as left arm numbness which resolved on its own and lasted just a few seconds. Patient stating her shortness of breath had improved with rest. She is not on oxygen at home. She denied cough, fevers, chills, abdominal pain nausea or vomiting. She stated she had pedal edema but this is chronic for her. According to ER reports, patient was dyspneic and was placed on oxygen. This did not improve her respiratory status. Patient also with accelerated hypertension upon arrival with initial blood pressure 179/100. Otherwise, workup in the emergency department unremarkable however the ER staff attempted to ambulate patient and her oxygen levels dropped into the 80s with ambulation. Chest x-ray negative. Patient was admitted to the hospitalist service for further evaluation and management. VQ scan ruled out a PE. Patient was on room air and stated her dyspnea had returned to her baseline while admitted. She was admitted and observed over the course of 2 nights. Mild troponin elevation of 0.04, adynamic and flat, likely secondary to demand ischemia secondary to uncontrolled hypertension. Her lisinopril dosage was increased and her blood pressure improved. Of note, patient was reluctant to having her blood pressure decreased because she feels as if her diastolic blood pressure ever drops below 80 that this makes her feel as if she has no energy and makes her feel miserable. She was amenable to increasing her dose but stated that she would only take it on an as-needed basis. Her TSH was elevated however T3 and T4 were both normal. Her atrial fibrillation rate was controlled, she is not on anticoagulation therapy due to her history of Crohn's disease and prior GI bleeds. We performed an echocardiogram that revealed an ejection fraction of 35% with indeterminate diastolic function. Initial echocardiogram did have a concern for possible thrombus however repeat with Definity was negative. This echocardiogram was compared to prior report from May 2016 without acute changes. Patient felt she was euvolemic during this admission. She denied chest pain or shortness of breath above her norm throughout this admission. She was able to ambulate around her room without limitations. She was discharged home in stable condition with close outpatient follow-up recommended. Of note, we attempted to give the patient carvedilol but she refused. ITS Impressions Chest X-Ray 03/22/17 17:08 IMPRESSION: 1. No acute cardiopulmonary disease. D/ / Ja Schroeder MD / Ja Schroeder MD Interpreting Provider: Ja Schroeder MD Pulmonary Perfusion Imaging 03/22/17 20:34 IMPRESSION: Very low probability for pulmonary embolism. D/ / Chinedu Davies MD / Chinedu Davies MD Interpreting Provider: Chinedu Davies MD Chest X-Ray 03/23/17 12:20 IMPRESSION: Stable portable study D/ / Zakiya Renteria Cha, MD / Zakiya Renteria Cha, MD Interpreting Provider: Zakiya Renteria Cha, MD Echocardiogram impressions: LVEF 35%. Mild concentric left ventricular hypertrophy. Indeterminate diastolic function. Global left ventricular systolic dysfunction. Normal right ventricular structure and function. Mild mitral regurgitation. No evidence of pulmonary hypertension. Recommend repeat study with Definity to evaluate for possible thrombus in the LV apex. Limited Echo with Imaging Enhancement Agent Date of Study: 03/24/2017 Indications: Evaulate for thrombus/source of embolus Impressions: LVEF 35-40%. Definity was given. There is no evidence of left ventricular thrombus. Left ventricle is mildly dilated. Mild to moderate concentric hypertrophy of the left ventricle. - Time Spent with Patient Total time spent providing and/or coordinating discharge services: - Constitutional Vitals: Temp Pulse Resp BP Pulse Ox 96.6 F L 72 15 167/83 97 03/24/17 11:54 03/24/17 11:54 03/24/17 11:54 03/24/17 11:54 03/24/17 11:54 General appearance: Present: A&O X 3, pleasant, no acute distress, answers questions appropriately - Head Head exam: Present: atraumatic, normocephalic - Eye Eye exam: Present: PERRL, conjuntiva pink, sclera anicteric Pupils: Present: PERRL - Neck Neck exam general surgery: Present: supple, trachea midline. Absent: lymphadenopathy - Respiratory Respiratory exam: Present: CTAB. Absent: accessory muscle use, rales, respiratory distress, rhonchi, wheezes - Cardiovascular Cardiovascular exam: Present: RRR, +S1, +S2. Absent: diastolic murmur, gallop, rubs, systolic murmur - GI/Abdominal GI/Abdominal exam: Present: normal bowel sounds, soft, no peritoneal signs. Absent: distended, tenderness - Extremities Exam Extremities exam: Present: pedal edema (trace, nonpitting), warm, radial pulses palpable and symmetrical. Absent: calf tenderness, cyanotic - Neurological Exam Neurological exam: Present: alert, CN II-XII intact, normal gait, oriented X3, no focal deficits, strengths equal and symetr throughout. Absent: pronater drift, facial droop, speech deficit - Skin Skin exam: Present: dry, intact, normal color, warm
--- NOTE | 2017-03-24 17:23 | Electrocardiograph Report ---
[place] [id number] Test Date: 2017-03-22 Pat Name: Ilana Lemos Department: 104 Room: 3B33 Gender: F Optometric Tech: NELA : 1945 Requested By: Lorelei Joy Order Number: [id number] Reading MD: Susan Yo Measurements Intervals [place] Rate: 72 P: [place]: 0 QRS: 5 QRSD: 112 T: 153 QT: 389 QTc: 413 Interpretive Statements ATRIAL FIBRILLATION WITH ABERRANT CONDUCTION OR VENTRICULAR PREMATURE COMPLEXES INTRAVENTRICULAR CONDUCTION DELAY NONSPECIFIC T-WAVE ABNORMALITY Electronically Signed On 03-24-2017 17:21:37 EDT by Susan Yo
== END 2017-03-24 14:40 | disposition home or self-care (01) | DRG 292 ==
LOC: EMEROO 17:03 → 3BNU 17:03
PROVIDERS: ADMIT Nurse Practitioner Family; ATTEND Nurse Practitioner Family

== ENCOUNTER 2017-04-29 06:45 | Observation (INO) ==
[2017-04-29] MEDS ORDERED: Aspirin 81 MG TAB.CHEW PO ONE (06:55)
[2017-04-29 07:06] LABS: Basophils % 0.9 %; Eosinophils # 0.1 K/mcL (0.0-0.6); Eosinophils % 2.4 %; Hematocrit 42.3 % (35.3-44.9); Hemoglobin 13.6 g/dL (11.5-15.4); Immature Granulocytes % 0.7 % (0-4); Lymphocytes # 1.1 K/mcL (0.6-4.6); Lymphocytes % 24.7 %; Mean Corpuscular HGB Conc 32.2 g/dL (31.6-35.5); Mean Corpuscular Hemoglobin 29.1 pg (28.0-33.3); Mean Corpuscular Volume 90.6 fL (83.0-100.0); Mean Platelet Volume 11.6 fL (9.4-12.4); Monocytes # 0.4 K/mcL (0.0-1.3); Monocytes % 9.6 %; Neutrophils # 2.8 K/mcL (1.6-8.9); Platelet Count 123 K/mcL (140-400); Red Blood Count 4.67 M/mcL (3.82-4.97); Red Cell Distribution Width 13.8 % (11.5-14.5); Segmented Neutrophils % 61.7 %
[2017-04-29 07:45] LABS: Bilirubin,Urine Negative (Negative); Blood,Urine Negative (Negative); Clarity,Urine Clear (Clear); Color,Urine Yellow (Yellow); Glucose,Urine (UA) Normal (Normal); Ketones,Urine Negative (Negative); Leukocyte Esterase,Urine Moderate (Negative); Nitrite,Urine Negative (Negative); Protein,Urine Negative (Neg-Trace); Specific Gravity,Urine 1.007 (1.010-1.025); Urobilinogen,Urine Normal (Normal)
[2017-04-29 07:48] LABS: Bacteria,Urine None Seen per hpf (None-Few); Hyaline Casts,Urine None Seen per lpf (None-Few); RBC,Urine 0-3 per hpf (0-3); Squamous Epithelial Cell,Urine Many per lpf (None-Few); WBC,Urine 15-30 per hpf (0-3)
[2017-04-29 07:49] LABS: BUN/Creatinine Ratio 15 (6-26); Blood Urea Nitrogen 14 mg/dL (7-20); Calcium 9.2 mg/dL (8.6-10.8); Carbon Dioxide 26 mEq/L (19-29); Chloride 106 mEq/L (98-109); Glucose 133 mg/dL (70-99); Osmolality,Calculated 292 (280-300); Potassium 4.1 mEq/L (3.5-4.5); Sodium 140 mEq/L (136-145); eGFR For African Americans > 60 (> 60); eGFR For Non-African Americans > 60 (> 60)
--- NOTE | 2017-04-29 08:12 | Emergency Department Note ---
Disposition Clinical Impression: Hypertensive urgency Dyspnea Qualifiers: Dyspnea type: dyspnea on exertion Qualified Code(s): R06.09 - Other forms of dyspnea Disposition: Admitted As Inpatient Condition: Fair SOB HPI - General Chief Complaint: ED Shortness of Breath/Dyspnea Stated Complaint: difficulty breathing Time Seen by Provider: 04/29/17 06:48 Source: patient, EMS Mode of arrival: private vehicle Limitations: no limitations Nursing Notes Reviewed: Yes Vital Signs Reviewed: Yes - History of Present Illness Pt Subjective Complaint: shortness of breath Onset (ago): Just [employer] Context: other (Was awakened by feeling short of breath) Severity: moderate, now resolved Consistency/Duration: now resolved Improves with: nothing Worsens with: nothing Known history of: COPD, congestive heart failure Associated symptoms: Denies: chest pain, pain with inspiration, fever, cough, wheezing, sputum production, orthopnea, lower extremity pain, polyuria, polydipsia, parasthesias, palpitations, hemoptysis, diaphoresis, nausea/vomiting , syncope, abdominal pain, rash, sense of impending doom Treatment prior to arrival: oxygen Cough present: No Sputum Amount: None - Related Data Home oxygen amount: none Home Medications Medication Instructions Recorded Confirmed Acetaminophen [Tylenol] 500 mg PO QAM PRN 03/02/15 03/23/17 Aspirin Enteric Coated [Aspirin EC] 81 mg PO QAM 03/02/15 03/23/17 Clopidogrel [Plavix] 75 mg PO QAM 03/02/15 03/23/17 Nitroglycerin 0.4 mg SL Q5MIN PRN 12/29/15 03/23/17 Calcium Carbonate/Vitamin D3 1 tab PO DAILY 01/04/16 03/23/17 [Calcium 600 + Vit D Tablet] Levothyroxine [Synthroid] 100 mcg PO DAILY 03/22/17 03/23/17 Previous Rx's Medication Instructions Recorded Furosemide [Lasix] 40 mg PO QAM #30 tablet 03/25/15 Anastrozole [Arimidex] 1 mg PO DAILY #90 tablet 10/24/16 Lisinopril [Zestril] 30 mg PO DAILY PRN #45 tab 03/24/17 Allergies Allergy/AdvReac Type Severity Reaction Status Date / Time simvastatin AdvReac Nausea Verified 03/22/17 17:16 All systems ED: reviewed and negative except as stated. Review of Systems: As Per HPI Constitutional: Denies: fever, chills, weakness, night sweats Eyes: Denies: vision change ENT ED: Denies: throat pain, congestion, dysphagia Cardiovascular: Reports: dyspnea on exertion. Denies: chest pain, palpitations , orthopnea, edema, syncope Respiratory: Reports: as per HPI, dyspnea. Denies: cough, wheezes, hemoptysis, stridor, sputum production Gastrointestinal: Denies: abdominal pain, nausea, vomiting, diarrhea Genitourinary: Denies: urgency, dysuria, frequency, hematuria Neurological: Denies: headache, weakness, numbness, paresthesias Hematological/Lymphatic: Denies: easy bleeding, easy bruising, lymphadenopathy Past Medical History - Past Medical History Attestation: Yes The following information was validated with the patient. Source: patient Medical history: Reports: asthma, atrial fibrillation, cancer, cardiomyopathy, CHF, coronary artery disease, diabetes, GERD, hyperlipidemia, hypertension, liver disease, myocardial infarction, thyroid disease, other Surgical history: Reports: angioplasty/stent, appendectomy, cancer surgery, cholecystectomy, coronary bypass (CABG), hysterectomy Psychiatric history: Reports: no psych history - Social History Smoking Status: Unknown if ever smoked Smokeless Tobacco Status: No Alcohol use: Reports: unknown Drug use: Reports: none Physical Exam - General Limitations: no limitations General appearance: alert, in no apparent distress - Head Head exam: atraumatic, normocephalic, normal inspection - Eye Eye exam: Present: normal appearance, PERRL, EOMI. Absent: scleral icterus, conjunctival injection, periorbital swelling - ENT ENT exam: normal exam, normal oropharynx - Neck Neck exam: Present: normal inspection, full ROM, trachea midline. Absent: tenderness, meningismus - Chest Chest inspection: Present: normal inspection, symmetric chest wall rise - Respiratory Respiratory exam: Present: normal lung sounds bilaterally. Absent: respiratory distress, wheezes, stridor, accessory muscle use, prolonged expiratory phase - Cardiovascular Cardiovascular exam: Present: regular rate, normal rhythm, normal heart sounds. Absent: systolic murmur, diastolic murmur - Abdominal Exam Abdominal exam: Present: soft, Non-Tender. Absent: mass, pulsatile mass - Extremities Exam Extremities exam: Present: full ROM, normal capillary refill, pedal edema. Absent: tenderness, joint swelling, calf tenderness - Back Exam Back exam: Present: normal inspection - Neurological Exam Neurological exam: Present: alert, oriented X3, CN II-XII intact - Psychiatric Psychiatric exam: Present: normal affect, normal mood - Skin Skin exam: Present: warm, dry, intact, normal color Course Course Narrative: Patient presents for evaluation of dyspnea that woke her up. It has resolved. She is not sure what made it better. She is very hypertensive and states that she does not feel comfortable taking her blood pressure medication because she had an adverse reaction to one of her blood pressure medications. At one point and "nearly ". She denies chest pain, cough or hemoptysis, fever, chills, nausea or vomiting. She also denies headache, vision changes, ringing in the ears, unilateral weakness, speech problems, ataxia or vertigo. X-ray shows stable cardiomegaly, no signs of acute failure. She has remained afebrile with normal oxygen saturation, normal heart rate, and elevated blood pressure since arrival. Her lab work does not reflect an infectious process. Ambulatory. Vitals were obtained. Her heart rate was 1:15, and her oxygen saturation was 97 % on room air. She did describe feeling short of breath however. Given her elevated blood pressure, reluctance to use her blood pressure medication, dyspnea on exertion, history of coronary artery disease, and her age, we feel that admission for further evaluation and management of her dyspnea and hypertension is warranted. Case was discussed with Dr. Perez. He has had face- to-face time with patient and agrees with the assessment and plan. Vital Signs Temperature 98 F 04/29/17 06:52 Pulse Rate 67 04/29/17 06:52 Respiratory Rate 18 04/29/17 06:52 Blood Pressure 211/123 04/29/17 06:52 O2 Sat by Pulse Oximetry 98 04/29/17 06:52 Temperature 98 F 04/29/17 06:52 Pulse Rate 67 04/29/17 06:52 Respiratory Rate 18 04/29/17 06:52 Blood Pressure 211/123 04/29/17 06:52 O2 Sat by Pulse Oximetry 98 04/29/17 06:52 Oxygen Delivery Oxygen Delivery Room Air Shortness of Breath/Dyspnea - Medical Records Medical records reviewed: Yes I reviewed the patient's medical records. - Lab Data Lab results reviewed: Yes I reviewed the patient's lab results. Lab results narrative: Laboratory Last Values WBC 4.5 K/mcL (4.3-11.1) 04/29/17 06:58 RBC 4.67 M/mcL (3.82-4.97) 04/29/17 06:58 Hgb 13.6 g/dL (11.5-15.4) 04/29/17 06:58 Hct 42.3 % (35.3-44.9) 04/29/17 06:58 MCV 90.6 fL (83.0-100.0) 04/29/17 06:58 MCH 29.1 pg (28.0-33.3) 04/29/17 06:58 MCHC 32.2 g/dL (31.6-35.5) 04/29/17 06:58 RDW 13.8 % (11.5-14.5) 04/29/17 06:58 Plt Count 123 K/mcL (140-400) L 04/29/17 06:58 MPV 11.6 fL (9.4-12.4) 04/29/17 06:58 Immature Gran % 0.7 % (0-4) 04/29/17 06:58 Seg Neutrophils % 61.7 % 04/29/17 06:58 Lymphocytes % 24.7 % 04/29/17 06:58 Monocytes % 9.6 % 04/29/17 06:58 Eosinophils % 2.4 % 04/29/17 06:58 Basophils % 0.9 % 04/29/17 06:58 Neutrophils # 2.8 K/mcL (1.6-8.9) 04/29/17 06:58 Lymphocytes # 1.1 K/mcL (0.6-4.6) 04/29/17 06:58 Monocytes # 0.4 K/mcL (0.0-1.3) 04/29/17 06:58 Eosinophils # 0.1 K/mcL (0.0-0.6) 04/29/17 06:58 Basophils # 0.0 K/mcL (0.0-0.2) 04/29/17 06:58 Sodium 140 mEq/L (136-145) 04/29/17 07:20 Potassium 4.1 mEq/L (3.5-4.5) 04/29/17 07:20 Chloride 106 mEq/L (98-109) 04/29/17 07:20 Carbon Dioxide 26 mEq/L (19-29) 04/29/17 07:20 BUN 14 mg/dL (7-20) 04/29/17 07:20 Creatinine 0.92 mg/dL (0.57-1.11) 04/29/17 07:20 Est GFR ( Amer) > 60 (> 60) 04/29/17 07:20 Est GFR (Non-Af Amer) > 60 (> 60) 04/29/17 07:20 BUN/Creatinine Ratio 15 (6-26) 04/29/17 07:20 Glucose 133 mg/dL (70-99) H 04/29/17 07:20 Calculated Osmolality 292 (280-300) 04/29/17 07:20 Lactic Acid 1.5 mmol/L (0.5-2.2) 04/29/17 07:20 Calcium 9.2 mg/dL (8.6-10.8) 04/29/17 07:20 Troponin I 0.02 ng/mL (0-0.03) 04/29/17 07:20 B-Natriuretic Peptide 300 pg/mL (0-100) H 04/29/17 06:58 Urine Color Yellow (Yellow) 04/29/17 07:40 Urine Clarity Clear (Clear) 04/29/17 07:40 Urine pH 7.0 pH Units (5.0-8.0) 04/29/17 07:40 Ur Specific [place] 1.007 (1.010-1.025) L 04/29/17 07:40 Urine Protein Negative mg/dL (Neg-Trace) 04/29/17 07:40 Urine Glucose (UA) Normal mg/dL (Normal) 04/29/17 07:40 Urine Ketones Negative mg/dL (Negative) 04/29/17 07:40 Urine Blood Negative (Negative) 04/29/17 07:40 Urine Nitrite Negative (Negative) 04/29/17 07:40 Urine Bilirubin Negative (Negative) 04/29/17 07:40 Urine Urobilinogen Normal mg/dL (Normal) 04/29/17 07:40 Ur Leukocyte Esterase Moderate (Negative) H 04/29/17 07:40 Urine Microscopic RBC 0-3 per hpf (0-3) 04/29/17 07:40 Urine Microscopic WBC 15-30 per hpf (0-3) H 04/29/17 07:40 Ur Squamous Epith Cells Many per lpf (None-Few) H 04/29/17 07:40 Urine Bacteria None Seen per hpf (None-Few) 04/29/17 07:40 Hyaline Casts None Seen per lpf (None-Few) 04/29/17 07:40 Ur Culture Indicated? YES (NO) A 04/29/17 07:40 Specimen Rejected Hemolyzed 04/29/17 06:58 Result diagrams: 04/29/17 06:58 Lab Results 04/29/17 04/29/17 Range/Units 06:58 06:58 WBC 4.5 (4.3-11.1) K/mcL RBC 4.67 (3.82-4.97) M/mcL Hgb 13.6 (11.5-15.4) g/dL Hct 42.3 (35.3-44.9) % MCV 90.6 (83.0-100.0) fL MCH 29.1 (28.0-33.3) pg MCHC 32.2 (31.6-35.5) g/dL RDW 13.8 (11.5-14.5) % Plt Count 123 L (140-400) K/mcL MPV 11.6 (9.4-12.4) fL Immature Gran % 0.7 (0-4) % Seg Neutrophils % 61.7 % Lymphocytes % 24.7 % Monocytes % 9.6 % Eosinophils % 2.4 % Basophils % 0.9 % Neutrophils # 2.8 (1.6-8.9) K/mcL Lymphocytes # 1.1 (0.6-4.6) K/mcL Monocytes # 0.4 (0.0-1.3) K/mcL Eosinophils # 0.1 (0.0-0.6) K/mcL Basophils # 0.0 (0.0-0.2) K/mcL Specimen Rejected Hemolyzed - Radiology Data Radiology results reviewed: Yes I reviewed the patient's radiology results. Chest X-Ray 04/29/17 06:55 IMPRESSION: Stable mild enlarged heart size. No acute congestive heart failure or pneumonia. D/ / 04/29/2017 07:43:10 Seth Lazcano MD / jatin Interpreting Provider: Seth Lazcano MD - EKG Data EKG attestation: Yes I reviewed and interpreted this EKG. Rate: Reports: normal Rhythm: Reports: A.Fib, arrhythmia [place]/QRS: Reports: IVCD When compared to previous EKG there are: no significant changes Interpretation: Reports: unchanged when compared to prior tracing (date)
[2017-04-29] MEDS ORDERED: Nitroglycerin 0.4 MG TAB.SUBL SL PRN (14:30)
[2017-04-29] MEDS ORDERED: Naloxone 0.4 MG/ML INJ IVP PRN (14:32)
[2017-04-29] MEDS ORDERED: Dextrose Gel 15 GM PO PRN ×2 (14:35)
[2017-04-29] MEDS ORDERED: D5% in Water 1,000 ML IVC PRN (14:35)
[2017-04-29] MEDS ORDERED: *HR* Dextrose 50 % in Water (Syg) 50 ML SYRINGE IVP PRN (14:35)
--- NOTE | 2017-04-29 15:08 | Internal Med History&Physical ---
Date of Encounter: 04/29/17 Time of Encounter: 14:45 Assessment and Plan (1) Congestive heart failure due to hypertension Current visit: Yes Status: Acute Dyspnea which began this morning, BNP 300, HTN urgency in ED, non-compliant with ALEXA inhibitor d/t episode of near syncopal event. Remains hypertensive, but BP has decreased since arrival. With decrease in BP, dyspnea seems to have improved. Continue lasix at home dose Add Valsartan 80mg PO QD Serial Troponin CBC & BMP in AM continuous tele Oxygen PRN for dyspnea (2) Accelerated hypertension with NYHA class 4 systolic heart failure Current visit: Yes Status: Acute BP has improved without intervention, continue to monitor hemodynamic status. For treatment See above (3) Dyspnea Current visit: Yes Status: Resolved Has improved since arrival, now resting comfortable on RA. Likely related to HTN and CHF. Oxygen PRN, for dyspnea. Qualifiers: Dyspnea type: dyspnea on exertion Qualified Code(s): R06.09 - Other forms of dyspnea (4) Atrial fibrillation Current visit: Yes Status: Chronic rate controlled, does not appear contributory to dyspnea, she does not appear to have a PE, resting comfortable on RA. Cannot take coumadin d/t h/o crohns disease Qualifiers: Atrial fibrillation type: paroxysmal Qualified Code(s): I48.0 - Paroxysmal atrial fibrillation (5) Hypothyroidism Current visit: Yes Status: Chronic continue synthroid at home dose Qualifiers: Hypothyroidism type: unspecified Qualified Code(s): E03.9 - Hypothyroidism , unspecified (6) Diabetes Current visit: Yes Status: Chronic H/O chronic DM, not on any oral hypoglycemics or insulin at home. AC/HS accuchecks, Diabetic diet, LSSIC, check A1C Qualifiers: Diabetes mellitus type: type 2 Diabetes mellitus complication status: without complication Diabetes mellitus fpc insulin use: without watermaster use Qualified Code(s): E11.9 - Type 2 diabetes mellitus without complications (7) DVT prophylaxis Current visit: Yes Status: Acute mechanical DVT prophylaxis while in bed, ambulate and in chair TID Internal Medicine - H&P: HPI Chief complaint: dyspnea, HTN urgency Admitted From: Home Plans for Post Hospital Care: Home History of present illness: Ms. Lemos is a 71 year old female with a PMH of HTN, DM, HLD, CAD, PTCA 2014, CABG, CHF, hypothyroidism, and A-fib presents to [facility] with dyspnea and hypertensive urgency which began this morning and is ongoing at this time. She admits that the dyspnea is worsened by exertion and does somewhat improve with rest but does not completely resolve. She ran out of her Lasix 4 days ago, but denies any increase in weight, or swelling, denies fever, chest pain, and lower extremity swelling. She was experiencing hypertensive urgency upon arrival to the ED with a BP of 190/104. She admits to being non-compliant with antihypertensives d/t episodes of near syncope. Workup in ED reveals a BNP of 300, negative troponin at 0.02, and unremarkable CBC and CMP. CXR show stable cardiomegaly. Being admitted for further workup and evaluation. Past Med Surg Social Fam HX - Past Medical History Medical history: asthma, atrial fibrillation, cancer, cardiomyopathy, CHF, coronary artery disease, diabetes, GERD, hyperlipidemia, hypertension, liver disease, myocardial infarction, thyroid disease, other Psychiatric history: no psych history - Past Surgical History Surgical History: angioplasty/stent, appendectomy, cancer surgery, cholecystectomy, coronary bypass (CABG), hysterectomy - Social History Smoking Status: Unknown if ever smoked Smokeless Tobacco Status: No Alcohol use: unknown Drug use: none - Family History Mother Family Member Ethnicity: Non- Living Status: Hx Family Cardiac Disorders: Yes (Coronary artery disease, hypertension) Hx Family Endocrine Disorder: Yes (Diabetes) Hx Family Neurologic Disorders: Yes (CVA) Brother Hx Family Endocrine Disorder: Yes (Diabetes) Sister Hx Family Cancer: Yes (Lung cancer) Hx Family Endocrine Disorder: Yes (Diabetes) Internal Medicine - H&P: Meds Acetaminophen [Tylenol] 500 mg PO QAM PRN 03/02/15 [History] Aspirin Enteric Coated [Aspirin EC] 81 mg PO QAM 03/02/15 [History] Clopidogrel [Plavix] 75 mg PO QAM 03/02/15 [History] Furosemide [Lasix] 40 mg PO QAM #30 tablet 03/25/15 [Rx] Nitroglycerin 0.4 mg SL Q5MIN PRN 12/29/15 [History] Calcium Carbonate/Vitamin D3 [Calcium 600 + Vit D Tablet] 1 tab PO DAILY [History] Anastrozole [Arimidex] 1 mg PO DAILY #90 tablet 10/24/16 [Rx] Levothyroxine [Synthroid] 100 mcg PO DAILY 03/22/17 [History] Lisinopril [Zestril] 30 mg PO DAILY PRN #45 tab 03/24/17 [Rx] 3 Allergy/AdvReac Type Severity Reaction Status Date / Time simvastatin AdvReac Nausea Verified 03/22/17 17:16 All Systems PM: A 10-system review of systems was performed and is negative for pertinent findings except as documented above in the HPI. - Constitutional Constitutional: fatigue, no chills, no fever(s), no night sweats - EENT Eyes: no change in vision, no discharge, no pain, no photophobia Ears: no ear discharge, no ear pain, no tinnitus Nose, mouth and throat: no dysphagia, no nasal discharge, no neck pain, no sore throat - Cardiovascular Cardiovascular ROS IM: as per HPI, dyspnea on exertion, orthopnea, no chest pain , no diaphoresis, no edema, no lightheadedness, no palpitations, no syncope - Respiratory Respiratory: no cough, no dyspnea, no wheezing, no pain on inspiration, no excessive phlegm production - Gastrointestinal Gastrointestinal: no abdominal pain, no diarrhea, no hematemesis, no hematochezia, no melena, no nausea, no vomiting - Genitourinary Genitourinary: no change in urinary stream, no dysuria, no flank pain, no hematuria - Musculoskeletal Musculoskeletal ROS IM: no numbness, no tingling - Integumentary Integumentary IM: no rash, no unusual bruising - Neurological Neurological ROS: no confusion, no convulsions, no focal weakness, no numbness, no tingling, no tremor(s) - Hematologic/Lymphatic Hematologic/Lymphatic: no easy bruising - Constitutional Vitals: Temp Pulse Resp BP Pulse Ox 97.3 F L 69 14 166/81 96 04/29/17 12:35 04/29/17 12:35 04/29/17 12:35 04/29/17 12:35 04/29/17 12:35 General appearance: Present: cooperative, A&O X 3, no acute distress, answers questions appropriately - Head Head exam: Present: atraumatic, normocephalic - Eye Eye exam: Present: EOMI, PERRL, conjuntiva pink, sclera anicteric Pupils: Present: PERRL - Neck Neck exam general surgery: Present: supple, trachea midline. Absent: lymphadenopathy - Respiratory Respiratory exam: Present: CTAB. Absent: accessory muscle use, chest wall tenderness, decreased breath sounds, rales, rhonchi, wheezes - Cardiovascular Cardiovascular exam: Present: RRR, +S1, +S2. Absent: diastolic murmur, gallop, irregular rhythm, JVD, rubs, systolic murmur - GI/Abdominal GI/Abdominal exam: Present: normal bowel sounds, soft, no peritoneal signs. Absent: distended, tenderness - Extremities Exam Extremities exam: Present: normal capillary refill, warm, radial pulses palpable and symmetrical. Absent: calf tenderness, cyanotic, pedal edema - Expanded Lower Extremities Exam Lower Leg exam: Present: swelling (LLE swelling without pitting) - Neurological Exam Neurological exam: Present: CN II-XII intact, oriented X3, no focal deficits. Absent: pronater drift, facial droop, speech deficit - Skin Skin exam: Present: dry, intact Internal Med - H&P Results - Labs CBC & Chem 7: 04/29/17 06:58 04/29/17 07:20 - EKG Data -: EKG Interpreted by Myself - EKG Data Prior EKG available for review: yes When compared to previous EKG: there is no significant change EKG comments: EKG reveals non-specific ST changes, in A-fib rate control 04/29/17 15:26 - Diagnostic Studies Chest x-ray Status: image reviewed by me Additional comments: stable cardiomegally, no evidence of Acute pulmonary edema
[2017-04-29] MEDS: Insulin LISPRO 300 UNITS/3 ML VIAL SQ SCH (16:27)
[2017-04-29] MEDS: Valsartan 80 MG TABLET PO SCH (16:28)
--- NOTE | 2017-04-29 17:42 | Event Note ---
Date of Encounter: 04/29/17 Time of Encounter: 17:41 Patient seen and examined with nurse practitioner. Patient presents with shortness of breath that awakened her this morning from sleep. Severe hypertension on presentation. Suspect pulmonary congestion due to diastolic dysfunction related to severe hypertension. Patient is more comfortable now. Patient has been refusing to take her lisinopril because she is concerned about hypotension. Will start in angiotensin receptor titi instead. Will trend troponin. Observation admission
[2017-04-29] MEDS: *HR* Heparin 5,000 UNIT/ML VIAL SQ SCH (18:20)
[2017-04-29] MEDS ORDERED: Insulin LISPRO 300 UNITS/3 ML VIAL SQ SCH (21:00)
--- NOTE | 2017-04-29 22:17 | Electrocardiograph Report ---
[facility] Test Date: 2017-04-29 Pat Name: Ilana Lemos Department: 103 Room: 2A43 Gender: F [employer]: VIOLETTE : 1945 Requested By: Bianca Conde Order Number: [id number] Reading MD: Julio Arguello MD Measurements Intervals [place] Rate: 65 P: FL: 0 QRS: 17 QRSD: 118 T: 144 QT: 404 QTc: 416 Interpretive Statements ATRIAL FIBRILLATION MODERATE INTRAVENTRICULAR CONDUCTION DELAY NONSPECIFIC ST & T-WAVE ABNORMALITY Electronically Signed On 04-29-2017 22:15:36 EDT by Julio Arguello MD
[2017-04-30] MEDS: *HR* Heparin 5,000 UNIT/ML VIAL SQ SCH (05:34)
[2017-04-30 06:37] LABS: Hemoglobin A1C 6.3 %
[2017-04-30 06:40] LABS: BUN/Creatinine Ratio 15 (6-26); Blood Urea Nitrogen 13 mg/dL (7-20); Calcium 8.8 mg/dL (8.6-10.8); Carbon Dioxide 24 mEq/L (19-29); Chloride 107 mEq/L (98-109); Glucose 126 mg/dL (70-99); Osmolality,Calculated 292 (280-300); Sodium 140 mEq/L (136-145); eGFR For African Americans > 60 (> 60); eGFR For Non-African Americans > 60 (> 60)
[2017-04-30 06:45] VITALS: BP 137/85
[2017-04-30 07:42] LABS: Basophils % 0.9 %; Eosinophils # 0.1 K/mcL (0.0-0.6); Eosinophils % 2.6 %; Hematocrit 39.6 % (35.3-44.9); Hemoglobin 13.1 g/dL (11.5-15.4); Immature Granulocytes % 0.3 % (0-4); Immature Platelets 9.3 % (1.1-6.1); Lymphocytes # 0.8 K/mcL (0.6-4.6); Mean Corpuscular HGB Conc 33.1 g/dL (31.6-35.5); Mean Corpuscular Hemoglobin 30.2 pg (28.0-33.3); Mean Corpuscular Volume 91.2 fL (83.0-100.0); Mean Platelet Volume 11.4 fL (9.4-12.4); Monocytes # 0.3 K/mcL (0.0-1.3); Monocytes % 9.6 %; Neutrophils # 2.2 K/mcL (1.6-8.9); Platelet Count 112 K/mcL (140-400); Red Blood Count 4.34 M/mcL (3.82-4.97); Red Cell Distribution Width 13.9 % (11.5-14.5); Segmented Neutrophils % 64.6 %
--- NOTE | 2017-04-30 08:49 | Discharge Summary ---
Date of Encounter: 04/30/17 Time of Encounter: 08:47 - Discharge Diagnosis (1) Accelerated hypertension with NYHA class 4 systolic heart failure Priority: Primary Status: Acute (2) Hypertensive urgency Priority: Primary Status: Acute (3) Systolic heart failure, chronic Priority: Primary Status: Chronic Comments: mild systolic CHF exacerbation will provide prescription for Lasix (4) Diabetes Priority: Secondary Status: Chronic Qualifiers: Diabetes mellitus type: type 2 Diabetes mellitus complication status: without complication Diabetes mellitus penitentiary insulin use: without penitentiary use Qualified Code(s): E11.9 - Type 2 diabetes mellitus without complications (5) Atrial fibrillation Priority: Secondary Status: Chronic Qualifiers: Atrial fibrillation type: paroxysmal Qualified Code(s): I48.0 - Paroxysmal atrial fibrillation (6) Dyslipidemia Priority: Secondary Status: Chronic (7) Crohn's disease Priority: Secondary Status: Chronic Qualifiers: Gastrointestinal tract location: unspecified location Digestive disease complication type: unspecified complication Qualified Code(s): K50.919 - Crohn 's disease, unspecified, with unspecified complications (8) Hypothyroidism Priority: Secondary Status: Chronic Qualifiers: Hypothyroidism type: unspecified Qualified Code(s): E03.9 - Hypothyroidism , unspecified (9) Hx of CABG Priority: Secondary Status: Chronic (10) Breast cancer Priority: Secondary Status: Chronic Qualifiers: Breast location: unspecified site of breast Estrogen receptor status: unspecified Patient sex: female Laterality: unspecified laterality Qualified Code(s): C50.919 - Malignant neoplasm of unspecified site of unspecified female breast - Discharge Medications Prescriptions: Furosemide [Lasix] 40 mg PO QAM #30 tablet Valsartan [Diovan] 80 mg PO DAILY #30 tablet Home Medications: Acetaminophen [Tylenol] 500 mg PO QAM PRN 03/02/15 [History] Aspirin Enteric Coated [Aspirin EC] 81 mg PO QAM 03/02/15 [History] Clopidogrel [Plavix] 75 mg PO QAM 03/02/15 [History] Nitroglycerin 0.4 mg SL Q5MIN PRN 12/29/15 [History] Calcium Carbonate/Vitamin D3 [Calcium 600 + Vit D Tablet] 1 tab PO DAILY [History] Anastrozole [Arimidex] 1 mg PO DAILY #90 tablet 10/24/16 [Rx] Levothyroxine [Synthroid] 100 mcg PO DAILY 03/22/17 [History] Furosemide [Lasix] 40 mg PO QAM #30 tablet 04/30/17 [Rx] Valsartan [Diovan] 80 mg PO DAILY #30 tablet 04/30/17 [Rx] Allergies/Adverse Reactions: 3 Allergy/AdvReac Type Severity Reaction Status Date / Time simvastatin AdvReac Nausea Verified 03/22/17 17:16 Date of admission: 04/29/17 10:48 Primary care physician: Joseph Cedeno DO - Patient Status Disposition: Home, Self-Care Condition: Fair Overall status at discharge: patient is back to baseline - Discharge Instructions Follow Up With: Joseph Cedeno DO [Primary Care Provider] - Additional Instructions: Follow-up with primary care physician within the next 7 days. Be compliant with valsartan, stopped taking lisinopril. Continue Lasix - Diet and Activity Activity: increase activity as tolerated Diet: diabetic diet, low salt diet Hospital course: Ms. Lemos is a 71 year old female with a PMH of HTN, DM not insulin-dependent , HLD, CAD, PTCA 2014, CABG, systolic CHF ejection fraction of 35-40%, hypothyroidism, and A-fib not on anticoagulation presented to [facility] with dyspnea and hypertensive urgency. She admitted that the dyspnea was worsened by exertion and did somewhat improve with rest but did not completely resolve. She ran out of her Lasix 4 days ago, but denied any increase in weight, or swelling, denies fever, chest pain, and lower extremity swelling. She was experiencing hypertensive urgency upon arrival to the ED with a BP of 211/123. She admitted to being non-compliant with antihypertensives d/t episodes of near syncope. Workup in ED reveals a BNP of 300, negative troponin at 0.02, and unremarkable CBC and CMP. CXR show stable cardiomegaly. Patient refused to take her lisinopril because she is concerned about hypotension and "decreased heart rate" Her BP today is 137/85, SOB has subsided. Agreed to continue taking losartan which was started here at the hospital. Lasix was continued - Time Spent with Patient Total time spent providing and/or coordinating discharge services: Greater than 30 minutes (40 min) - Constitutional Vitals: Temp Pulse Resp BP Pulse Ox 98.3 F 78 18 137/85 97 04/30/17 06:44 04/30/17 06:44 04/30/17 06:44 04/30/17 06:44 04/30/17 06:44 General appearance: Present: cooperative, A&O X 3, no acute distress, answers questions appropriately - Head Head exam: Present: atraumatic, normocephalic - Eye Eye exam: Present: PERRL, conjuntiva pink, sclera anicteric Pupils: Present: PERRL - Neck Neck exam general surgery: Present: supple, trachea midline. Absent: lymphadenopathy - Respiratory Respiratory exam: Present: CTAB. Absent: accessory muscle use, rales, rhonchi, wheezes - Cardiovascular Cardiovascular exam: Present: RRR, +S1, +S2. Absent: diastolic murmur, gallop, rubs, systolic murmur - GI/Abdominal GI/Abdominal exam: Present: normal bowel sounds, soft, no peritoneal signs. Absent: distended, tenderness - Extremities Exam Extremities exam: Present: warm, radial pulses palpable and symmetrical. Absent : calf tenderness, cyanotic, pedal edema - Neurological Exam Neurological exam: Present: CN II-XII intact, oriented X3, no focal deficits. Absent: pronater drift, facial droop, speech deficit - Skin Skin exam: Present: dry, intact
[2017-04-30] MEDS ORDERED: Cholecalciferol (D-3) 1,000 UNIT TABLET PO SCH (09:00)
[2017-04-30] MEDS ORDERED: Anastrozole 1 MG TABLET PO SCH (09:00)
[2017-04-30] MEDS ORDERED: Furosemide 40 MG TABLET PO SCH (09:00)
[2017-04-30] MEDS ORDERED: Aspirin Enteric Coated 81 MG Tablet PO SCH (09:00)
[2017-04-30] MEDS ORDERED: FLUARIX QUAD 2017-18 36MOS UP/PF 0.5 ML SYRINGE IM ONE (09:52)
[2017-04-30] MEDS: Valsartan 80 MG TABLET PO SCH (11:16)
[2017-04-30] MEDS: Insulin LISPRO 300 UNITS/3 ML VIAL SQ SCH (11:18)
== END 2017-04-30 11:35 | disposition home or self-care (01) ==
LOC: EMEROO 06:45 → 2ANU 06:45
PROVIDERS: ADMIT Nurse Practitioner; ATTEND Internal Medicine

== ENCOUNTER 2017-08-08 01:07 | Observation (INO) ==
[2017-08-08] MEDS ORDERED: Ipratropium/Albuterol Neb 3 ML IH ONE (01:30)
--- NOTE | 2017-08-08 01:34 | Emergency Department Note ---
Disposition Clinical Impression: Influenza B Left lower lobe pneumonia Qualifiers: Pneumonia type: due to unspecified organism Qualified Code(s): J18.1 - Lobar pneumonia, unspecified organism Dyspnea Qualifiers: Dyspnea type: unspecified Qualified Code(s): R06.00 - Dyspnea, unspecified Hypertension Qualifiers: Hypertension type: unspecified Qualified Code(s): I10 - Essential (primary) hypertension Disposition: Admitted As Inpatient Condition: Fair Referrals: Joseph Cedeno DO [Primary Care Provider] - Forms: ED Satisfaction Letter Time of Disposition: 03:35 SOB HPI - General Chief Complaint: ED Shortness of Breath/Dyspnea Stated Complaint: STEPHANIE, CP Time Seen by Provider: 08/08/17 01:08 Source: patient, EMS Mode of arrival: EMS Limitations: no limitations Nursing Notes Reviewed: Yes Vital Signs Reviewed: Yes - History of Present Illness Nontoxic-appearing 71-year-old female presents by EMS for evaluation of worsening productive cough, shortness of breath, orthopnea, chest pain with inspiration and cough, subjective chills, and worsening bilateral lower extremity edema. She has a history of congestive heart failure and states frequent admissions for exacerbations. She denies any hemoptysis. Her chest pain is only present with inspiration or cough. She denies any abdominal pain, nausea, vomiting, diarrhea, or diaphoresis. Pt Subjective Complaint: shortness of breath, cough Onset (ago): day(s) (4) Severity: moderate Consistency/Duration: gradually worsening Improves with: nothing Worsens with: lying flat, exertion Known history of: congestive heart failure Associated symptoms: Reports: pain with inspiration, cough, wheezing, sputum production. Denies: hemoptysis, nausea/vomiting, abdominal pain Treatment prior to arrival: none Cough present: Yes Cough Description: Involuntary Cough Frequency: Intermittent Sputum production: Yes Sputum Amount: Small Sputum Color: Yellow - Related Data Home oxygen amount: none Home Medications Medication Instructions Recorded Confirmed Acetaminophen [Tylenol] 500 mg PO QAM PRN 03/02/15 04/29/17 Aspirin Enteric Coated [Aspirin EC] 81 mg PO QAM 03/02/15 04/29/17 Clopidogrel [Plavix] 75 mg PO QAM 03/02/15 04/29/17 Nitroglycerin 0.4 mg SL Q5MIN PRN 12/29/15 04/29/17 Calcium Carbonate/Vitamin D3 1 tab PO DAILY 01/04/16 04/29/17 [Calcium 600 + Vit D Tablet] Levothyroxine [Synthroid] 100 mcg PO DAILY 03/22/17 04/29/17 Previous Rx's Medication Instructions Recorded Anastrozole [Arimidex] 1 mg PO DAILY #90 tablet 10/24/16 Furosemide [Lasix] 40 mg PO QAM #30 tablet 04/30/17 Valsartan [Diovan] 80 mg PO DAILY #30 tablet 04/30/17 Allergies Allergy/AdvReac Type Severity Reaction Status Date / Time simvastatin AdvReac Nausea Verified 03/22/17 17:16 All systems ED: reviewed and negative except as stated. Constitutional: Reports: as per HPI, chills. Denies: fever, weakness, weight change Eyes: Denies: eye pain, eye discharge, vision change ENT ED: Denies: ear pain, throat pain, dental pain, hearing loss, epistaxis, congestion, dysphagia Cardiovascular: Reports: as per HPI, orthopnea, edema. Denies: chest pain, palpitations, dyspnea on exertion, syncope Respiratory: Reports: as per HPI, cough, dyspnea, wheezes, sputum production. Denies: hemoptysis, stridor Gastrointestinal: Denies: abdominal pain, nausea, vomiting, diarrhea, constipation, hematemesis, melena, hematochezia Genitourinary: Denies: dysuria, frequency, hematuria, discharge Musculoskeletal: Denies: back pain, neck pain, arthralgia, myalgia Integumentary: Denies: rash, abrasion, lesions Neurological: Denies: headache, weakness, numbness, paresthesias, confusion, abnormal gait, vertigo Psychiatric: Denies: anxiety, depression, suicidal thoughts, homicidal thoughts , auditory hallucinations, visual hallucinations Endocrine: Denies: fatigue Hematological/Lymphatic: Denies: easy bleeding, easy bruising Allergic/Immunologic: Denies: facial swelling, urticaria Past Medical History - Past Medical History Attestation: Yes The following information was validated with the patient. Source: patient, nursing notes reviewed Medical history: Reports: asthma, atrial fibrillation, cancer, cardiomyopathy, CHF, coronary artery disease, diabetes, GERD, hyperlipidemia, hypertension, liver disease, myocardial infarction, thyroid disease, other Surgical history: Reports: angioplasty/stent, appendectomy, cancer surgery, cholecystectomy, coronary bypass (CABG), hysterectomy Psychiatric history: Reports: no psych history - Social History Smoking Status: Unknown if ever smoked Smokeless Tobacco Status: No Alcohol use: Reports: unknown Drug use: Reports: none Physical Exam - General Limitations: no limitations General appearance: alert, in no apparent distress - Head Head exam: atraumatic, normocephalic, normal inspection - Eye Eye exam: Present: normal appearance, PERRL, EOMI. Absent: nystagmus - ENT ENT exam: mucous membranes moist - Neck Neck exam: Present: normal inspection, full ROM, trachea midline - Chest Chest inspection: Present: normal inspection, symmetric chest wall rise - Respiratory Respiratory exam: Present: wheezes (Expiratory wheezes noted bilaterally. Lungs sounds coarse to auscultation throughout the periphery.). Absent: normal lung sounds bilaterally, respiratory distress, accessory muscle use, prolonged expiratory phase - Cardiovascular Cardiovascular exam: Present: regular rate, normal rhythm, normal heart sounds - Abdominal Exam Abdominal exam: Present: soft, Non-Tender, normal bowel sounds - Extremities Exam Extremities exam: Present: full ROM, pedal edema (3+ pretibial edema noted bilaterally). Absent: tenderness - Neurological Exam Neurological exam: Present: alert, oriented X3 - Psychiatric Psychiatric exam: Present: normal affect, normal mood - Skin Skin exam: Present: warm, dry, intact, normal color. Absent: rash Course Course Narrative: 0330: I have discussed this patient's case with Dr. Sagar Caballero. Dr. Sagar Caballero has had a [id number] evaluation with the patient and agrees with admission to the hospitalist service for further treatment of a left lower lobe pneumonia and concomitant influenza B. We will start the patient on Tamiflu, as the patient is uncertain as to when the fevers began. We will also treat her suspected pneumonia with Rocephin and azithromycin, as we are unable to ascertain a bacterial versus viral etiology at this time. 0410: I spoke with Dr. Davis of the Hospital services accepted the patient for admission under her care. Vital Signs Temperature 99.0 F 08/08/17 01:10 Pulse Rate 99 08/08/17 01:10 Respiratory Rate 18 08/08/17 01:10 Blood Pressure 185/98 08/08/17 01:10 O2 Sat by Pulse Oximetry 98 08/08/17 01:10 Temperature 99.0 F 08/08/17 01:10 Pulse Rate 89 08/08/17 04:00 Respiratory Rate 18 08/08/17 04:00 Blood Pressure 141/122 08/08/17 04:00 O2 Sat by Pulse Oximetry 100 08/08/17 04:00 Oxygen Delivery Oxygen Delivery Nasal Cannula Shortness of Breath/Dyspnea - Medical Records Medical records reviewed: Yes I reviewed the patient's medical records. - Lab Data Lab results reviewed: Yes I reviewed the patient's lab results. Lab results narrative: Laboratory Last Values WBC 6.0 K/mcL (4.3-11.1) 08/08/17 02:34 RBC 3.92 M/mcL (3.82-4.97) 08/08/17 02:34 Hgb 12.0 g/dL (11.5-15.4) 08/08/17 02:34 Hct 36.0 % (35.3-44.9) 08/08/17 02:34 MCV 91.8 fL (83.0-100.0) 08/08/17 02:34 MCH 30.6 pg (28.0-33.3) 08/08/17 02:34 MCHC 33.3 g/dL (31.6-35.5) 08/08/17 02:34 RDW 13.3 % (11.5-14.5) 08/08/17 02:34 Plt Count 87 K/mcL (140-400) L 08/08/17 02:34 MPV 12.4 fL (9.4-12.4) 08/08/17 02:34 Immature Gran % 0.3 % (0-4) 08/08/17 02:34 Seg Neutrophils % 77.5 % 08/08/17 02:34 Lymphocytes % 9.9 % 08/08/17 02:34 Monocytes % 9.9 % 08/08/17 02:34 Eosinophils % 2.2 % 08/08/17 02:34 Basophils % 0.2 % 08/08/17 02:34 Neutrophils # 4.7 K/mcL (1.6-8.9) 08/08/17 02:34 Lymphocytes # 0.6 K/mcL (0.6-4.6) 08/08/17 02:34 Monocytes # 0.6 K/mcL (0.0-1.3) 08/08/17 02:34 Eosinophils # 0.1 K/mcL (0.0-0.6) 08/08/17 02:34 Basophils # 0.0 K/mcL (0.0-0.2) 08/08/17 02:34 Immature Plt Fraction 12.0 % (1.1-6.1) H 08/08/17 02:34 Sodium 135 mEq/L (136-145) L 08/08/17 02:34 Potassium 4.4 mEq/L (3.5-5.1) 08/08/17 02:34 Chloride 101 mEq/L (98-107) 08/08/17 02:34 Carbon Dioxide 27 mEq/L (23-29) 08/08/17 02:34 BUN 16 mg/dL (8-23) 08/08/17 02:34 Creatinine 0.84 mg/dL (0.60-1.20) 08/08/17 02:34 Est GFR ( Amer) > 60 (> 60) 08/08/17 02:34 Est GFR (Non-Af Amer) > 60 (> 60) 08/08/17 02:34 BUN/Creatinine Ratio 19 (6-26) 08/08/17 02:34 Glucose 157 mg/dL (70-105) H 08/08/17 02:34 Calculated Osmolality 284 (280-300) 08/08/17 02:34 Lactic Acid 0.9 mmol/L (0.5-2.2) 08/08/17 03:12 Calcium 8.8 mg/dL (8.6-10.3) 08/08/17 02:34 Troponin I 0.04 ng/mL (< 0.04) H* 08/08/17 02:34 B-Natriuretic Peptide 357 pg/mL (Less than 100) H 08/08/17 02:30 Urine Color Yellow (Yellow) 08/08/17 03:20 Urine Clarity Clear (Clear) 08/08/17 03:20 Urine pH 6.5 pH Units (5.0-8.0) 08/08/17 03:20 Ur Specific [place] 1.022 (1.010-1.025) 08/08/17 03:20 Urine Protein Trace mg/dL (Neg-Trace) 08/08/17 03:20 Urine Glucose (UA) 100 mg/dL (Normal) H 08/08/17 03:20 Urine Ketones Negative mg/dL (Negative) 08/08/17 03:20 Urine Blood Negative (Negative) 08/08/17 03:20 Urine Nitrite Negative (Negative) 08/08/17 03:20 Urine Bilirubin Negative (Negative) 08/08/17 03:20 Urine Urobilinogen Normal mg/dL (Normal) 08/08/17 03:20 Ur Leukocyte Esterase Negative (Negative) 08/08/17 03:20 Urine Microscopic RBC 0-3 per hpf (0-3) 08/08/17 03:20 Urine Microscopic WBC 3-5 per hpf (0-3) H 08/08/17 03:20 Ur Squamous Epith Cells Many per lpf (None-Few) H 08/08/17 03:20 Urine Bacteria None Seen per hpf (None-Few) 08/08/17 03:20 Hyaline Casts None Seen per lpf (None-Few) 08/08/17 03:20 Ur Culture Indicated? NO (NO) 08/08/17 03:20 Result diagrams: 08/08/17 02:34 08/08/17 02:34 Lab Results 08/08/17 08/08/17 08/08/17 Range/Units 02:30 02:34 02:34 WBC 6.0 (4.3-11.1) K/mcL RBC 3.92 (3.82-4.97) M/mcL Hgb 12.0 (11.5-15.4) g/dL Hct 36.0 (35.3-44.9) % MCV 91.8 (83.0-100.0) fL MCH 30.6 (28.0-33.3) pg MCHC 33.3 (31.6-35.5) g/dL RDW 13.3 (11.5-14.5) % Plt Count 87 L (140-400) K/mcL MPV 12.4 (9.4-12.4) fL Immature Gran % 0.3 (0-4) % Seg Neutrophils % 77.5 % Lymphocytes % 9.9 % Monocytes % 9.9 % Eosinophils % 2.2 % Basophils % 0.2 % Neutrophils # 4.7 (1.6-8.9) K/mcL Lymphocytes # 0.6 (0.6-4.6) K/mcL Monocytes # 0.6 (0.0-1.3) K/mcL Eosinophils # 0.1 (0.0-0.6) K/mcL Basophils # 0.0 (0.0-0.2) K/mcL Immature Plt Fraction 12.0 H (1.1-6.1) % Sodium 135 L (136-145) mEq/L Potassium 4.4 (3.5-5.1) mEq/L Chloride 101 (98-107) mEq/L Carbon Dioxide 27 (23-29) mEq/L BUN 16 (8-23) mg/dL Creatinine 0.84 (0.60-1.20) mg/dL Est GFR ( Amer) > 60 (> 60) Est GFR (Non-Af Amer) > 60 (> 60) BUN/Creatinine Ratio 19 (6-26) Glucose 157 H (70-105) mg/dL Calculated Osmolality 284 (280-300) Lactic Acid (0.5-2.2) mmol/L Calcium 8.8 (8.6-10.3) mg/dL Troponin I (< 0.04) ng/mL B-Natriuretic Peptide 357 H (Less than 100) pg/mL Urine Color (Yellow) Urine Clarity (Clear) Urine pH (5.0-8.0) pH Units Ur Specific [place] (1.010-1.025) Urine Protein (Neg-Trace) mg/dL Urine Glucose (UA) (Normal) mg/dL Urine Ketones (Negative) mg/dL Urine Blood (Negative) Urine Nitrite (Negative) Urine Bilirubin (Negative) Urine Urobilinogen (Normal) mg/dL Ur Leukocyte Esterase (Negative) Urine Microscopic RBC (0-3) per hpf Urine Microscopic WBC (0-3) per hpf Ur Squamous Epith Cells (None-Few) per lpf Urine Bacteria (None-Few) per hpf Hyaline Casts (None-Few) per lpf Ur Culture Indicated? (NO) 08/08/17 08/08/17 08/08/17 Range/Units 02:34 02:34 03:12 WBC (4.3-11.1) K/mcL RBC (3.82-4.97) M/mcL Hgb (11.5-15.4) g/dL Hct (35.3-44.9) % MCV (83.0-100.0) fL MCH (28.0-33.3) pg MCHC (31.6-35.5) g/dL RDW (11.5-14.5) % Plt Count (140-400) K/mcL MPV (9.4-12.4) fL Immature Gran % (0-4) % Seg Neutrophils % % Lymphocytes % % Monocytes % % Eosinophils % % Basophils % % Neutrophils # (1.6-8.9) K/mcL Lymphocytes # (0.6-4.6) K/mcL Monocytes # (0.0-1.3) K/mcL Eosinophils # (0.0-0.6) K/mcL Basophils # (0.0-0.2) K/mcL Immature Plt Fraction (1.1-6.1) % Sodium (136-145) mEq/L Potassium (3.5-5.1) mEq/L Chloride (98-107) mEq/L Carbon Dioxide (23-29) mEq/L BUN (8-23) mg/dL Creatinine (0.60-1.20) mg/dL Est GFR ( Amer) (> 60) Est GFR (Non-Af Amer) (> 60) BUN/Creatinine Ratio (6-26) Glucose (70-105) mg/dL Calculated Osmolality (280-300) Lactic Acid 1.0 0.9 (0.5-2.2) mmol/L Calcium (8.6-10.3) mg/dL Troponin I 0.04 H* (< 0.04) ng/mL B-Natriuretic Peptide (Less than 100) pg/mL Urine Color (Yellow) Urine Clarity (Clear) Urine pH (5.0-8.0) pH Units Ur Specific [place] (1.010-1.025) Urine Protein (Neg-Trace) mg/dL Urine Glucose (UA) (Normal) mg/dL Urine Ketones (Negative) mg/dL Urine Blood (Negative) Urine Nitrite (Negative) Urine Bilirubin (Negative) Urine Urobilinogen (Normal) mg/dL Ur Leukocyte Esterase (Negative) Urine Microscopic RBC (0-3) per hpf Urine Microscopic WBC (0-3) per hpf Ur Squamous Epith Cells (None-Few) per lpf Urine Bacteria (None-Few) per hpf Hyaline Casts (None-Few) per lpf Ur Culture Indicated? (NO) 08/08/17 Range/Units 03:20 WBC (4.3-11.1) K/mcL RBC (3.82-4.97) M/mcL Hgb (11.5-15.4) g/dL Hct (35.3-44.9) % MCV (83.0-100.0) fL MCH (28.0-33.3) pg MCHC (31.6-35.5) g/dL RDW (11.5-14.5) % Plt Count (140-400) K/mcL MPV (9.4-12.4) fL Immature Gran % (0-4) % Seg Neutrophils % % Lymphocytes % % Monocytes % % Eosinophils % % Basophils % % Neutrophils # (1.6-8.9) K/mcL Lymphocytes # (0.6-4.6) K/mcL Monocytes # (0.0-1.3) K/mcL Eosinophils # (0.0-0.6) K/mcL Basophils # (0.0-0.2) K/mcL Immature Plt Fraction (1.1-6.1) % Sodium (136-145) mEq/L Potassium (3.5-5.1) mEq/L Chloride (98-107) mEq/L Carbon Dioxide (23-29) mEq/L BUN (8-23) mg/dL Creatinine (0.60-1.20) mg/dL Est GFR ( Amer) (> 60) Est GFR (Non-Af Amer) (> 60) BUN/Creatinine Ratio (6-26) Glucose (70-105) mg/dL Calculated Osmolality (280-300) Lactic Acid (0.5-2.2) mmol/L Calcium (8.6-10.3) mg/dL Troponin I (< 0.04) ng/mL B-Natriuretic Peptide (Less than 100) pg/mL Urine Color Yellow (Yellow) Urine Clarity Clear (Clear) Urine pH 6.5 (5.0-8.0) pH Units Ur Specific [place] 1.022 (1.010-1.025) Urine Protein Trace (Neg-Trace) mg/dL Urine Glucose (UA) 100 H (Normal) mg/dL Urine Ketones Negative (Negative) mg/dL Urine Blood Negative (Negative) Urine Nitrite Negative (Negative) Urine Bilirubin Negative (Negative) Urine Urobilinogen Normal (Normal) mg/dL Ur Leukocyte Esterase Negative (Negative) Urine Microscopic RBC 0-3 (0-3) per hpf Urine Microscopic WBC 3-5 H (0-3) per hpf Ur Squamous Epith Cells Many H (None-Few) per lpf Urine Bacteria None Seen (None-Few) per hpf Hyaline Casts None Seen (None-Few) per lpf Ur Culture Indicated? NO (NO) - Radiology Data Radiology results reviewed: Yes I reviewed the patient's radiology results. Chest X-Ray 08/08/17 01:30 IMPRESSION: Left basilar atelectasis or pneumonia. D/ / Americo Dos Santos MD / Americo Dos Santos MD Interpreting Provider: Americo Dos Santos MD - EKG Data EKG attestation: Yes I reviewed and interpreted this EKG. EKG results narrative: EKG reviewed by Dr. Sagar Caballero as well. EKG shows atrial fibrillation with aberrant conduction or ventricular premature complexes and nonspecific ST and T wave abnormalities at a rate of 84 bpm. QRS duration 110, QT/QTC intervals are 344/385. No ST elevation noted. No significant changes when compared to an EKG dated from 04/29/17. Attestation Statement - Attestation Attestation: For this encounter, I have reviewed the REHAB TECH or PA documentation, treatment plan, and medical decision making; and I have had face to face time with this patient. Patient is a 71-year-old white female with history of CHF who presents to the emergency room with a four-day history of gradually worsening upper respiratory symptoms including nasal congestion, cough become productive and shortness of breath. Patient complaining of sharp pleuritic chest pain worse with coughing and subjective fevers and chills. I agree with patient's physical exam findings as documented. Patient was quite hypertensive on arrival. Patient's EKG was normal sinus rhythm without acute ischemia. Review screen was positive for influenza B and chest x-ray shows a left basilar infiltrate. Patient was hypoxic on room air with room air sats reported to be 88-89% and is not normally on submental oxygen. Patient's labs show a positive troponin at 0.04 with normal renal function. Patient has had empiric community-acquired antibiotics as well as Tamiflu initiated by IV, and will be admitted to the hospitalist service.
[2017-08-08 02:40] LABS: Mean Platelet Volume 12.4 fL (9.4-12.4); Red Blood Count 3.92 M/mcL (3.82-4.97)
[2017-08-08 02:42] LABS: Basophils % 0.2 %; Eosinophils # 0.1 K/mcL (0.0-0.6); Eosinophils % 2.2 %; Immature Granulocytes % 0.3 % (0-4); Lymphocytes # 0.6 K/mcL (0.6-4.6); Lymphocytes % 9.9 %; Mean Corpuscular HGB Conc 33.3 g/dL (31.6-35.5); Mean Corpuscular Hemoglobin 30.6 pg (28.0-33.3); Mean Corpuscular Volume 91.8 fL (83.0-100.0); Monocytes # 0.6 K/mcL (0.0-1.3); Monocytes % 9.9 %; Red Cell Distribution Width 13.3 % (11.5-14.5); Segmented Neutrophils % 77.5 %
[2017-08-08 02:45] LABS: Neutrophils # 4.7 K/mcL (1.6-8.9); Platelet Count 87 K/mcL (140-400)
[2017-08-08 03:02] LABS: BUN/Creatinine Ratio 19 (6-26); Blood Urea Nitrogen 16 mg/dL (8-23); Calcium 8.8 mg/dL (8.6-10.3); Carbon Dioxide 27 mEq/L (23-29); Chloride 101 mEq/L (98-107); Glucose 157 mg/dL (70-105); Osmolality,Calculated 284 (280-300); Potassium 4.4 mEq/L (3.5-5.1); Sodium 135 mEq/L (136-145); eGFR For African Americans > 60 (> 60); eGFR For Non-African Americans > 60 (> 60)
[2017-08-08] MEDS ORDERED: Aspirin 81 MG TAB.CHEW PO ONE (03:05)
[2017-08-08] MEDS ORDERED: Azithromycin 500 MG in D5% in Water 250 ML IVPB ONE (03:23)
[2017-08-08 03:31] LABS: Bilirubin,Urine Negative (Negative); Blood,Urine Negative (Negative); Clarity,Urine Clear (Clear); Color,Urine Yellow (Yellow); Glucose,Urine (UA) 100 mg/dL (Normal); Ketones,Urine Negative (Negative); Leukocyte Esterase,Urine Negative (Negative); Nitrite,Urine Negative (Negative); PH,Urine 6.5 pH Units (5.0-8.0); Protein,Urine Trace mg/dL (Neg-Trace); Specific Gravity,Urine 1.022 (1.010-1.025); Urobilinogen,Urine Normal (Normal)
[2017-08-08 03:33] LABS: Bacteria,Urine None Seen per hpf (None-Few); Hyaline Casts,Urine None Seen per lpf (None-Few); RBC,Urine 0-3 per hpf (0-3); Squamous Epithelial Cell,Urine Many per lpf (None-Few)
[2017-08-08] MEDS ORDERED: Valsartan 80 MG TABLET PO STA (03:38)
[2017-08-08] MEDS ORDERED: cefTRIAXone 1,000 MG in Water for inj. (sterile) 20 ML 10 ML IVP ONE (07:00)
[2017-08-08] MEDS ORDERED: Naloxone 0.4 MG/ML INJ IVP PRN (10:41)
[2017-08-08] MEDS ORDERED: Nitroglycerin 0.4 MG TAB.SUBL SL PRN (10:43)
--- NOTE | 2017-08-08 10:57 | Internal Med History&Physical ---
Date of Encounter: 08/08/17 Time of Encounter: 10:49 Assessment and Plan (1) Pneumonia Current visit: Yes Status: Acute 71/female Admitted with worsening shortness of breath. Multiple comorbidities. Using accessory muscles of respiration. Left lower lobe crepitations. Plan: Admit as inpatient: Patient needs intravenous antibiotics/close monitoring of respiratory status. Intravenous ceftriaxone 1 g every 24 hours. Intravenous azithromycin 500 mg every 24 hours. Close monitoring of the respiratory status. Monitor the blood culture. Patient is a nonsmoker and we will monitor her very closely in terms of her oxygen saturation. Qualifiers: Pneumonia type: due to unspecified organism Laterality: left Lung location: lower lobe of lung Qualified Code(s): J18.1 - Lobar pneumonia, unspecified organism (2) Influenza B Current visit: Yes Status: Acute Patient's flu swab is positive for influenza b. We will start Tamiflu. Close monitoring of the respiratory status (3) HTN (hypertension) Current visit: No Status: Chronic Blood pressure is under very well controlled. Will continue home medication. Qualifiers: Hypertension type: essential hypertension Qualified Code(s): I10 - Essential (primary) hypertension (4) Hypothyroidism Current visit: No Status: Chronic Home medications restarted Qualifiers: Hypothyroidism type: unspecified Qualified Code(s): E03.9 - Hypothyroidism , unspecified (5) History of breast cancer in adulthood Current visit: No Status: Acute Previous history of a breast cancer. (6) CHF (congestive heart failure) Current visit: No Status: Chronic Extensive cardiac history. Last echo showed ejection fraction 30%. Presently on was started on 80 mg. Upon admission troponin was 0.04. Likely demand ischemia. We will trend troponin. History of previous stenting: We will continue aspirin/Plavix. Close monitoring of the heart status. She is known to have atrial fibrillation. Heart rate controlled with Coreg. Not a candidate for interrogation in view of a background history of Crohn's and multiple GI bleed in the past. Qualifiers: Congestive heart failure type: combined Congestive heart failure chronicity : chronic Qualified Code(s): I50.42 - Chronic combined systolic (congestive) and diastolic (congestive) heart failure (7) DVT prophylaxis Current visit: No Status: Acute Heparin Medical's imaging: This patient has a moderate to severe risk of worsening in spite of being on appropriate medication due to the underlying chronic comorbid conditions. Internal Medicine - H&P: HPI Chief complaint: Shortness of breath Admitted From: Emergency Dept Plans for Post Hospital Care: Home History of present illness: PCP: Dr. Joseph Cedeno Brief PMH: HTn, Dyslipidemia, Hypothyroidism, diabetes, coronary artery disease , PTCA 2015, congestive heart failure with EF of 30%, atrial fibrillation, not on anticoagulation due to the underlying Crohn's disease and previous GI bleed. History of breast cancer History of present medical illness: She was complaining of since Friday she has a worsening shortness of breath along with the cough and mucopurulent expectoration. Patient's son is also ill and was positive for influenza. Patient tried some home remedy but apparently that did not work and eventually it was noted that she was clinically getting worse and that is the reason she called squad last night. The squad brought her to this emergency room for further evaluation. Patient was complaining of productive cough with mucopurulent expectoration along with the shortness of breath. Patient was complaining of chest pain while she was having cough. Patient denies vomiting, abdominal pain, dizziness or diarrhea. Workup in the emergency room: Patient was evaluated in the emergency room. Basic labs were drawn. X-ray chest was done which was suggestive of a new left lower lobe pneumonia. Patient's flu test was positive for influenza B. Reason for admission: Left lower lobe pneumonia which requires intravenous antibiotics in a background history of for systolic congestive heart failure with multiple comorbidities. Family history: Noncontributory Past Med Surg Social Fam HX - Past Medical History Medical history: asthma, atrial fibrillation, cancer, cardiomyopathy, CHF, coronary artery disease, diabetes, GERD, hyperlipidemia, hypertension, liver disease, myocardial infarction, thyroid disease, other Psychiatric history: no psych history - Past Surgical History Surgical History: angioplasty/stent, appendectomy, cancer surgery, cholecystectomy, coronary bypass (CABG), hysterectomy - Social History Smoking Status: Unknown if ever smoked Smokeless Tobacco Status: No Alcohol use: unknown Drug use: none - Family History Mother Family Member Ethnicity: Non- Living Status: Hx Family Cardiac Disorders: Yes (Coronary artery disease, hypertension) Hx Family Endocrine Disorder: Yes (Diabetes) Hx Family Neurologic Disorders: Yes (CVA) Brother Living Status: Cause of : Heart disease Hx Family Cardiac Disorders: Yes Hx Family Endocrine Disorder: Yes (DM) Sister Living Status: Cause of : Lung cancer Hx Family Cancer: Yes Hx Family Endocrine Disorder: Yes (Diabetes) Internal Medicine - H&P: Meds Acetaminophen [Tylenol] 500 mg PO QAM PRN 03/02/15 [History] Aspirin Enteric Coated [Aspirin EC] 81 mg PO QAM 03/02/15 [History] Clopidogrel [Plavix] 75 mg PO QAM 03/02/15 [History] Nitroglycerin 0.4 mg SL Q5MIN PRN 12/29/15 [History] Calcium Carbonate/Vitamin D3 [Calcium 600 + Vit D Tablet] 1 tab PO DAILY [History] Anastrozole [Arimidex] 1 mg PO DAILY #90 tablet 10/24/16 [Rx] Levothyroxine [Synthroid] 125 mcg PO DAILY 03/22/17 [History] Furosemide [Lasix] 40 mg PO QAM #30 tablet 04/30/17 [Rx] Valsartan [Diovan] 80 mg PO DAILY #30 tablet 04/30/17 [Rx] Carvedilol [Coreg] 6.25 mg PO BIDWM 08/08/17 [History] 3 Allergy/AdvReac Type Severity Reaction Status Date / Time simvastatin AdvReac Nausea Verified 03/22/17 17:16 All Systems PM: A 10-system review of systems was performed and is negative for pertinent findings except as documented above in the HPI. - Constitutional Constitutional: no chills, no fever(s), no night sweats - EENT Eyes: no change in vision, no discharge, no pain, no photophobia Ears: no ear discharge, no ear pain, no tinnitus Nose, mouth and throat: no dysphagia, no nasal discharge, no neck pain, no sore throat - Cardiovascular Cardiovascular ROS IM: chest pain, diaphoresis, no dyspnea, no lightheadedness, no palpitations, no syncope - Respiratory Respiratory: cough, dyspnea, excessive phlegm production, change in phlegm color , no wheezing - Gastrointestinal Gastrointestinal: no abdominal pain, no diarrhea, no hematemesis, no hematochezia, no melena, no nausea, no vomiting - Genitourinary Genitourinary: no change in urinary stream, no dysuria, no flank pain, no hematuria - Musculoskeletal Musculoskeletal ROS IM: no numbness, no tingling - Integumentary Integumentary IM: no rash, no unusual bruising - Neurological Neurological ROS: no confusion, no convulsions, no focal weakness, no numbness, no tingling, no tremor(s) - Hematologic/Lymphatic Hematologic/Lymphatic: no easy bruising - Constitutional Vitals: Temp Pulse Resp BP Pulse Ox 97.4 F L 88 16 166/97 94 08/08/17 08:30 08/08/17 08:30 08/08/17 08:30 08/08/17 08:30 08/08/17 08:30 General appearance: Present: A&O X 3, pleasant, no acute distress, answers questions appropriately - Head Head exam: Present: atraumatic, normocephalic - Eye Eye exam: Present: PERRL, conjuntiva pink, sclera anicteric Pupils: Present: PERRL - Neck Neck exam general surgery: Present: supple, trachea midline. Absent: lymphadenopathy - Respiratory Respiratory exam: Present: CTAB, rales, rhonchi. Absent: accessory muscle use - Cardiovascular Cardiovascular exam: Present: RRR, +S1, +S2. Absent: diastolic murmur, gallop, rubs, systolic murmur - GI/Abdominal GI/Abdominal exam: Present: normal bowel sounds, soft, no peritoneal signs. Absent: distended, tenderness - Extremities Exam Extremities exam: Present: warm, radial pulses palpable and symmetrical. Absent : calf tenderness, cyanotic, pedal edema - Neurological Exam Neurological exam: Present: CN II-XII intact, oriented X3, no focal deficits. Absent: pronater drift, facial droop, speech deficit - Skin Skin exam: Present: dry, intact Internal Med - H&P Results - Labs CBC & Chem 7: 08/08/17 02:34 08/08/17 02:34
[2017-08-08] MEDS: Furosemide 40 MG TABLET PO SCH (11:40)
--- NOTE | 2017-08-08 12:35 | Electrocardiograph Report ---
[place] [id number] Test Date: 2017-08-08 Pat Name: Ilana Lemos Department: 104 Room: [facility] Gender: F Construction Equipment Mechanic: SUMEET : 1945 Requested By: Michael Moody Order Number: [id number] Reading MD: Riccardo Noguera MD Measurements Intervals [place]rier Rate: 84 P: [place]: 0 QRS: 15 QRSD: 110 T: 127 QT: 344 QTc: 385 Interpretive Statements ATRIAL FIBRILLATION WITH ABERRANT CONDUCTION OR VENTRICULAR PREMATURE COMPLEXES NONSPECIFIC ST & T-WAVE ABNORMALITY BASELINE ARTIFACT Electronically Signed On 08-08-2017 12:34:26 EST by Riccardo Noguera MD
--- NOTE | 2017-08-08 14:05 | Cardiology Consult Note ---
<Arianna Canales Frank - Last Filed: 08/08/17 14:25> Date of Encounter: 08/08/17 Time of Encounter: 13:40 Assessment and Plan (1) Elevated troponin I level Current Visit: Yes Status: Acute Mildly elevated troponin in the setting of PNA, influenza B. Patient denies angina (back pain). Does report atypical chest pain induced by coughing. Non-specific ST/T wave changes noted. Continue to cycle troponin levels. Check echocardiogram--if no significant changes from prior, will sign-off. Continue asa and betablocker. Hx of intolerance to betablocker. (2) CAD (coronary artery disease) Current Visit: Yes Status: Chronic Hx of CAD s/p CABG and most recent PCI in 2014. Denies angina equivalent. Reports atypical chest pain--worsens with deep breath or cough; likely pleuritic in etiology. Continue asa, betablocker, plavix. Intolerant to statins. Qualifiers: Coronary Disease-Associated Artery/Lesion type: bypass graft [place] vs. transplanted heart: [place] heart Associated angina: with unstable angina Qualified Code(s): I25.700 - Atherosclerosis of coronary artery bypass graft(s) , unspecified, with unstable angina pectoris (3) CHF (congestive heart failure) Current Visit: No Status: Chronic Hx of chronic systolic CHF. Most recent TTE (February 2017): EF 35-40%. Lower extremity edema noted on exam--patient reports this is chronic and unchanged. CXR: left basilar atelectasis or pneumonia Continue home CV medications including betablocker and ARB. CHF guidelines discussed including 2L/Na restricted diet. Strict I&Os, daily weights. Qualifiers: Congestive heart failure type: systolic Congestive heart failure chronicity : chronic Qualified Code(s): I50.22 - Chronic systolic (congestive) heart failure (4) Influenza B Current Visit: Yes Status: Acute (5) Left lower lobe pneumonia Current Visit: Yes Status: Acute Mgmt per primary service. Qualifiers: Pneumonia type: due to unspecified organism Qualified Code(s): J18.1 - Lobar pneumonia, unspecified organism (6) PAF (paroxysmal atrial fibrillation) Current Visit: Yes Status: Acute Hx of PAF. Continue betablocker. Declines full anticoagulation (discussed multiple times in the outpt setting). Continue asa. Discussion w patient/family: The assessment and plan as outlined above was discussed with the patient and/or family members who expressed understanding and agreement. All questions were answered. Thank you for involving us in the care of your patient. Please call with any questions. The patient will be discussed and reviewed with Dr. Root, changes to be made accordingly. History of Present Illness Consult date: 08/08/17 Requesting physician: Nicolás Johnson Consult reason: Elevated troponin Chief complaint: Cough, shortness of breath History of present illness: Ms. Lemos is a 71 year old female with PMHx significant for CAD s/p CABG/PCI, HTN, chronic systolic heart failure, HTN, Crohn's disease, PAF, and DMII who presented to the ED with complaints of subjective fevers, productive cough, and difficulty breathing since Friday. Positive sick contact--son. Patient denies chest pain/anginal equivalent. Upon arrival to ED, initial troponin 0.04. No ischemic ECG changes were noted. Swab was positive for influenza B. Prior CV testing: Holter 03/22/14: sinus rhythm (avg HR 81), very frequent PVCs, severe 3-beat runs of NSVT TTE 08/29/14: LVEF 45%, mildly dilated LV, moderate LAE, normal RV. TTE 02/03/15: LVEF 30-35%, mild dilated LV, moderate LAE, moderate RV dysfunction , mild MR, normal RVSP. Carotid US 03/03/15: bilateral carotids are essentially normal C 03/24/15: CAROLYN to mid RCA, CAROLYN to distal RCA, prior OM1 stent with 40% ISR, LVEF 60% TTE 04/08/15: LVEF 50-55%, mild LVH, diastolic dysfunction, normal RVSP, no significant valvular dysfunction. TTE 06/07/16: moderately dilated LV, LVEF 30-35%, mild LVH, mildly dilated LA, mild-moderate MR, mild WI, normal RVSP. TTE 03/23/17: LVEF 35%, mild LVH, normal RV, mild MR, normal RVSP. Limited TTE with Definity 03/24/17: mildly dilated LV, LVEF 35-40%, no evidence of LV thrombus, mild-moderate LVH. Past Med Surg Social Fam HX - Past Medical History Attestation: Yes The following information was validated with the patient. Source: patient Medical history: asthma, atrial fibrillation, cancer, cardiomyopathy, CHF, coronary artery disease, diabetes, GERD, hyperlipidemia, hypertension, liver disease, myocardial infarction, thyroid disease, other Psychiatric history: no psych history - Past Surgical History Surgical History: angioplasty/stent, appendectomy, cancer surgery, cholecystectomy, coronary bypass (CABG), hysterectomy - Social History Smoking Status: Unknown if ever smoked Smokeless Tobacco Status: No Alcohol use: unknown Drug use: none - Family History Mother Family Member Ethnicity: Non- Living Status: Hx Family Cardiac Disorders: Yes (Coronary artery disease, hypertension) Hx Family Endocrine Disorder: Yes (Diabetes) Hx Family Neurologic Disorders: Yes (CVA) Brother Living Status: Cause of : Heart disease Hx Family Cardiac Disorders: Yes Hx Family Endocrine Disorder: Yes (DM) Sister Living Status: Cause of : Lung cancer Hx Family Cancer: Yes Hx Family Endocrine Disorder: Yes (Diabetes) Medications and Allergies Acetaminophen [Tylenol] 500 mg PO QAM PRN 03/02/15 [History] Aspirin Enteric Coated [Aspirin EC] 81 mg PO QAM 03/02/15 [History] Clopidogrel [Plavix] 75 mg PO QAM 03/02/15 [History] Nitroglycerin 0.4 mg SL Q5MIN PRN 12/29/15 [History] Calcium Carbonate/Vitamin D3 [Calcium 600 + Vit D Tablet] 1 tab PO DAILY [History] Anastrozole [Arimidex] 1 mg PO DAILY #90 tablet 10/24/16 [Rx] Levothyroxine [Synthroid] 125 mcg PO DAILY 03/22/17 [History] Furosemide [Lasix] 40 mg PO QAM #30 tablet 04/30/17 [Rx] Valsartan [Diovan] 80 mg PO DAILY #30 tablet 04/30/17 [Rx] Carvedilol [Coreg] 6.25 mg PO BIDWM 08/08/17 [History] 3 Allergy/AdvReac Type Severity Reaction Status Date / Time simvastatin AdvReac Nausea Verified 03/22/17 17:16 All Systems Review: A 10-system review of systems was performed and is negative for pertinent findings except as documented above in the HPI. - Cardiovascular Cardiovascular: as per HPI Physical Examination Vital Signs, Last 4 Hours Temp Pulse Resp BP Pulse Ox 08/08/17 10:52 98.1 F 71 16 148/88 95 General: Conversant, Other (conversational dyspnea) HEENT: Atraumatic, Normocephaly Cardiac: Other (irregularly irregular) Neuro: Alert and responsive Abdomen: Soft Skin: No rashes noted on visualized skin Musculoskeletal: No Chest Wall Tenderness Extremities: Other (BLE edema, 2+) Results 08/08/17 02:34 08/08/17 02:34 Lab Results 08/08/17 11:38 Troponin I 0.11 H* Active Medications Anastrozole (Arimidex) 1 mg PO DAILY [facility] Stop: 02/08/18 09:01 Aspirin (Aspirin Ec) 81 mg PO QAM [facility] Stop: 02/08/18 09:01 Carvedilol (Coreg) 6.25 mg PO BIDWM [place] PRN Reason: Protocol Stop: 02/07/18 17:01 Clopidogrel Bisulfate (Plavix) 75 mg PO QAM [facility] Stop: 02/08/18 09:01 Furosemide (Lasix) 40 mg PO QAM [facility] Stop: 02/07/18 10:46 Last Admin: 08/08/17 11:40 Dose: 40 mg Heparin Sodium (Porcine) (Heparin) 5,000 unit SQ Q12HR [facility] Stop: 02/07/18 18:01 Azithromycin 500 mg/ Dextrose 250 mls @ 252 mls/hr IVPB Q24H [facility] Stop: 02/08/18 11:01 Ceftriaxone Sodium 1,000 mg/ (Sterile Water) 10 mls @ 150 mls/hr IVP DAILY [facility] Stop: 02/08/18 09:01 Levothyroxine Sodium (Synthroid) 125 mcg PO DAILY [facility] Stop: 02/08/18 09:01 Naloxone HCl (Narcan) 0.4 mg IVP Q2MIN PRN PRN Reason: Opioid Reversal Stop: 02/07/18 10:42 Nitroglycerin (Nitroglycerin) 0.4 mg SL Q5MIN PRN PRN Reason: chestpain Stop: 02/07/18 10:44 Oseltamivir Phosphate (Tamiflu) 30 mg PO BID [facility] Stop: 08/13/17 21:01 Pharmacy Profile Note (Patient Taking Own Medication) 0 each PO DAILY [facility] Stop: 02/08/18 09:01 Valsartan (Diovan) 80 mg PO DAILY [facility] Stop: 02/08/18 10:46 - Imaging and Cardiology Echo: report reviewed Cardiac cath: report reviewed - EKG Interpretation EKG results cardiology: personally reviewed Consult Discharge Plan - Plan Referrals: Joseph Cedeno DO [Primary Care Provider] - <Isai Root - Last Filed: 08/08/17 19:20> Date of Encounter: 08/08/17 - Attending Attestation I have personally performed a face to face evaluation on this patient. I have reviewed and agree with the care plan. History and Exam by me shows: 71 YOF with h/o PAF, ICM EF 35% recent PCI to RCA and ISR of OM1 STENT Presents with SOB and atypical Chest pain Influenza positive troponins slightly elevated to .39 Plan Currently not candidate for ischemic work up due to presenting comorbidities Continue to trend enzymes Evaluate for ischemia when recovers from influenza/pneumonia continues to refuse AC for stroke risk reduction with PAF Assessment and Plan Discussion w patient/family: The assessment and plan as outlined above was discussed with the patient and/or family members who expressed understanding and agreement. All questions were answered. Thank you for involving us in the care of your patient. Please call with any questions. History of Present Illness History of present illness: Ms. Lemos is a 71 year old female All Systems Review: A 10-system review of systems was performed and is negative for pertinent findings except as documented above in the HPI. Physical Examination Vital Signs, Last 4 Hours Temp Pulse Resp BP Pulse Ox 08/08/17 18:53 98.5 F 66 16 119/75 97 08/08/17 16:39 99.1 F 77 16 150/80 97 08/08/17 15:53 99.1 F 84 16 173/96 96 Results 08/08/17 02:34 08/08/17 02:34 Lab Results 08/08/17 08/08/17 11:38 16:21 Troponin I 0.11 H* 0.39 H*
[2017-08-08] MEDS: *HR* Heparin 5,000 UNIT/ML VIAL SQ SCH (17:40)
[2017-08-09] MEDS: *HR* Heparin 5,000 UNIT/ML VIAL SQ SCH ×2 (05:30→16:36)
[2017-08-09 05:33] LABS: Mean Platelet Volume 12.2 fL (9.4-12.4); Red Cell Distribution Width 13.2 % (11.5-14.5)
[2017-08-09 05:35] LABS: Basophils % 0.5 %; Eosinophils % 0.8 %; Hematocrit 33.4 % (35.3-44.9); Hemoglobin 11.1 g/dL (11.5-15.4); Immature Granulocytes % 0.3 % (0-4); Immature Platelets 11.1 % (1.1-6.1); Lymphocytes # 1.1 K/mcL (0.6-4.6); Lymphocytes % 26.4 %; Mean Corpuscular HGB Conc 33.2 g/dL (31.6-35.5); Mean Corpuscular Hemoglobin 30.1 pg (28.0-33.3); Mean Corpuscular Volume 90.5 fL (83.0-100.0); Monocytes # 0.4 K/mcL (0.0-1.3); Monocytes % 10.8 %; Red Blood Count 3.69 M/mcL (3.82-4.97); Segmented Neutrophils % 61.2 %
[2017-08-09 05:36] LABS: Neutrophils # 2.5 K/mcL (1.6-8.9); Platelet Count 81 K/mcL (140-400)
[2017-08-09 05:38] LABS: INR 1.2; Prothrombin Time 12.7 Seconds (9.4-12.1)
[2017-08-09 05:41] LABS: Activated Partial Thrombo Time 30.4 Seconds (26.0-36.0)
[2017-08-09 05:50] LABS: Alanine Aminotransferase 31 Units/L (7-52); Albumin/Globulin Ratio 1.1 (1.1-2.2); Alkaline Phosphatase 98 Units/L (34-104); Aspartate Amino Transferase 31 Units/L (13-39); BUN/Creatinine Ratio 15 (6-26); Bilirubin,Total 0.5 mg/dL (0.3-1.0); Blood Urea Nitrogen 13 mg/dL (8-23); Calcium 8.3 mg/dL (8.6-10.3); Carbon Dioxide 33 mEq/L (23-29); Chloride 100 mEq/L (98-107); Chol/HDL Ratio 4.2 (0-4.9); Cholesterol 160 mg/dL (< 200); Globulin 2.8 g/dL (2.4-3.5); Glucose 138 mg/dL (70-105); HDL Cholesterol 38 mg/dL (40-59); LDL Cholesterol,Calculated 99 mg/dL (0-99); Magnesium 1.8 mg/dL (1.6-2.6); Osmolality,Calculated 284 (280-300); Phosphorous 2.3 mg/dL (2.7-4.5); Potassium 3.6 mEq/L (3.5-5.1); Sodium 136 mEq/L (136-145); Total Protein 5.8 g/dL (6.4-8.9); Triglycerides 117 mg/dL (< 150); eGFR For African Americans > 60 (> 60); eGFR For Non-African Americans > 60 (> 60)
[2017-08-09] MEDS: cefTRIAXone 1,000 MG in Water for inj. (sterile) 20 ML 10 ML IVP SCH (08:24)
[2017-08-09] MEDS: Oseltamivir Phosphate 30 MG CAPSULE PO SCH ×2 (08:25→20:40)
[2017-08-09] MEDS: CALCIUM CARBONATE PO SCH (08:25)
[2017-08-09] MEDS: VITAMIN D3 PO SCH (08:25)
[2017-08-09] MEDS: Anastrozole 1 MG TABLET PO SCH (08:25)
[2017-08-09] MEDS: Aspirin Enteric Coated 81 MG Tablet PO SCH (08:25)
[2017-08-09] MEDS: Furosemide 40 MG TABLET PO SCH (08:25)
--- NOTE | 2017-08-09 10:00 | Internal Med Progress Note ---
Date of Encounter: 08/09/17 Time of Encounter: 09:57 - Assessment and plan (1) Pneumonia Current Visit: Yes Status: Acute Assessment and plan: Patient had respiratory symptoms and chest x-ray suggestive of bilateral atelectasis versus pneumonia. Patient is afebrile, no white count elevation, influenza positive. Continue ceftriaxone and azithromycin. Sputum culture if patient makes sputum.. Qualifiers: Pneumonia type: due to unspecified organism Laterality: left Lung location: lower lobe of lung Qualified Code(s): J18.1 - Lobar pneumonia, unspecified organism (2) Influenza B Current Visit: Yes Status: Acute Assessment and plan: Continue [place] day 1 of 5 Continue supportive care. Patient is afebrile. (3) Hypertension Current Visit: Yes Status: Chronic Assessment and plan: Controlled. Continue current medications. Qualifiers: Hypertension type: essential hypertension Qualified Code(s): I10 - Essential (primary) hypertension (4) CKD (chronic kidney disease) stage 3, GFR 30-59 ml/min Current Visit: Yes Status: Chronic Assessment and plan: Renal function is at baseline. Continue to monitor. (5) Elevated troponin I level Current Visit: Yes Status: Acute Assessment and plan: Patient with known history of coronary artery disease, and CHF. Admitted for influenza, and pneumonia. Troponin I 0.35. Repeat and cycle Troponin today. No chest pain Echocardiogram. Cardiology is following. (6) Atrial fibrillation Current Visit: Yes Status: Chronic Assessment and plan: HR is controlled. On aspirin for anticoagulation only. Continue current medications. Qualifiers: Atrial fibrillation type: paroxysmal Qualified Code(s): I48.0 - Paroxysmal atrial fibrillation (7) Dyslipidemia Current Visit: Yes Status: Chronic Assessment and plan: Intolerant of statins. (8) Hypothyroidism Current Visit: Yes Status: Chronic Assessment and plan: TSH WNL Continue home dose of Synthroid. Qualifiers: Hypothyroidism type: unspecified Qualified Code(s): E03.9 - Hypothyroidism , unspecified (9) CHF (congestive heart failure) Current Visit: Yes Status: Chronic Assessment and plan: Chronic leg edema, no pulm edema, has pneumonia Continue ASA/Plavix/BB/Lasix Qualifiers: Congestive heart failure type: systolic Congestive heart failure chronicity : chronic Qualified Code(s): I50.22 - Chronic systolic (congestive) heart failure (10) Diabetes Current Visit: Yes Status: Chronic Assessment and plan: A1C 6.4 Not on any meds FS ACHS Sliding scale Qualifiers: Diabetes mellitus type: type 2 Diabetes mellitus complication status: without complication 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 She has a past medical history of CHF with reduced ejection ejection fraction, ejection fraction 35-40%, atrial fibrillation not on anticoagulation by choice, hypertension and hypothyroidism. She seen and evaluated at bedside She denies new complaints, she reports mild improvement in cough. She denies chest pain. Her leg edema is chronic. - Constitutional Vitals: Temp Pulse Resp BP Pulse Ox 98.3 F 70 18 162/88 98 08/09/17 08:13 08/09/17 08:13 08/09/17 08:13 08/09/17 08:13 08/09/17 08:13 General appearance: Present: A&O X 3, pleasant, no acute distress, obese, answers questions appropriately - Head Head exam: Present: atraumatic, normocephalic - Eye Eye exam: Present: PERRL, conjuntiva pink, sclera anicteric Pupils: Present: PERRL - Neck Neck exam general surgery: Present: supple, trachea midline. Absent: lymphadenopathy - Respiratory Respiratory exam: Present: rales, rhonchi - Cardiovascular Cardiovascular exam: Present: irregular rhythm, +S1, +S2. Absent: diastolic murmur, gallop, rubs, systolic murmur - GI/Abdominal GI/Abdominal exam: Present: normal bowel sounds, soft, no peritoneal signs. Absent: distended, tenderness - Extremities Exam Extremities exam: Present: pedal edema, warm, radial pulses palpable and symmetrical. Absent: calf tenderness, cyanotic - Neurological Exam Neurological exam: Present: alert, CN II-XII intact, oriented X3, no focal deficits. Absent: pronater drift, facial droop, speech deficit - Skin Skin exam: Present: dry, intact Internal Medicine: Result - Labs CBC & Chem 7: 08/09/17 05:23 08/09/17 05:23 Labs: Short CBC 08/09/17 Range/Units 05:23 WBC 4.0 L (4.3-11.1) K/mcL Hgb 11.1 L (11.5-15.4) g/dL Hct 33.4 L (35.3-44.9) % Plt Count 81 L (140-400) K/mcL Neutrophils # 2.5 (1.6-8.9) K/mcL BMP 08/09/17 05:23 Sodium 136 Potassium 3.6 Chloride 100 Carbon Dioxide 33 H BUN 13 Creatinine 0.84 Glucose 138 H Calcium 8.3 L Cardiac Enzymes 08/08/17 08/08/17 08/08/17 Range/Units 11:38 16:21 22:33 Troponin I 0.11 H* 0.39 H* 0.35 H* (< 0.04) ng/mL Liver Function 08/09/17 Range/Units 05:23 Total Bilirubin 0.5 (0.3-1.0) mg/dL AST 31 (13-39) Units/L ALT 31 (7-52) Units/L Alkaline Phosphatase 98 (34-104) Units/L Albumin 3.0 L (3.5-5.7) g/dL - ABG Interpretation ABG results: PT/INR, D-dimer PT 12.7 Seconds (9.4-12.1) H 08/09/17 05:23 Consult Discharge Plan - Plan Referrals: Joseph Cedeno DO [Primary Care Provider] -
[2017-08-09] MEDS ORDERED: D5% in Water 1,000 ML IVC PRN (10:01)
[2017-08-09] MEDS ORDERED: Dextrose Gel 15 GM/37.5 ML TUBE PO PRN ×2 (10:01)
[2017-08-09] MEDS ORDERED: *HR* Dextrose 50 % in Water (Syg) 50 ML SYRINGE IVP PRN (10:01)
[2017-08-09] MEDS: Azithromycin 500 MG in D5% in Water 250 ML IVPB SCH (11:08)
[2017-08-09] MEDS: Valsartan 80 MG TABLET PO SCH (11:08)
[2017-08-09] MEDS: Insulin LISPRO 300 UNITS/3 ML VIAL SQ SCH ×3 (12:05→20:36)
[2017-08-10] MEDS: Ipratropium/Albuterol Neb 3 ML IH PRN ×5 (01:58→20:09)
[2017-08-10] MEDS: *HR* Heparin 5,000 UNIT/ML VIAL SQ SCH ×2 (05:10→16:39)
[2017-08-10 07:27] LABS: Hematocrit 33.1 % (35.3-44.9); Mean Corpuscular HGB Conc 33.2 g/dL (31.6-35.5)
[2017-08-10 07:29] LABS: Basophils % 0.3 %; Eosinophils # 0.1 K/mcL (0.0-0.6); Eosinophils % 3.8 %; Immature Granulocytes % 0.7 % (0-4); Immature Platelets 12.9 % (1.1-6.1); Lymphocytes % 34.4 %; Mean Corpuscular Hemoglobin 30.3 pg (28.0-33.3); Mean Corpuscular Volume 91.2 fL (83.0-100.0); Mean Platelet Volume 11.9 fL (9.4-12.4); Monocytes # 0.3 K/mcL (0.0-1.3); Monocytes % 9.3 %; Neutrophils # 1.5 K/mcL (1.6-8.9); Red Blood Count 3.63 M/mcL (3.82-4.97); Segmented Neutrophils % 51.5 %
[2017-08-10 07:34] LABS: Platelet Count 87 K/mcL (140-400)
[2017-08-10 07:43] LABS: BUN/Creatinine Ratio 23 (6-26); Blood Urea Nitrogen 19 mg/dL (8-23); Calcium 8.7 mg/dL (8.6-10.3); Carbon Dioxide 30 mEq/L (23-29); Chloride 101 mEq/L (98-107); Glucose 134 mg/dL (70-105); Osmolality,Calculated 286 (280-300); Potassium 4.1 mEq/L (3.5-5.1); Sodium 136 mEq/L (136-145); eGFR For African Americans > 60 (> 60); eGFR For Non-African Americans > 60 (> 60)
[2017-08-10] MEDS: Insulin LISPRO 300 UNITS/3 ML VIAL SQ SCH ×4 (07:59→21:15)
--- NOTE | 2017-08-10 08:14 | Event Note ---
Date of Encounter: 08/10/17 Time of Encounter: 08:13 - Cardiology Event Note TTE resulted with LVEF 35-40%, global hypokinesis. Previoious TTE 02/2017 with LVEF 35%. TTE unchanged, per cardiology consultation, will sign off and will follow in outpatient setting. Follow up set.
[2017-08-10] MEDS: Oseltamivir Phosphate 30 MG CAPSULE PO SCH ×2 (08:15→21:14)
[2017-08-10] MEDS: Valsartan 80 MG TABLET PO SCH (08:15)
[2017-08-10] MEDS: Aspirin Enteric Coated 81 MG Tablet PO SCH (08:15)
[2017-08-10] MEDS: Anastrozole 1 MG TABLET PO SCH (08:15)
[2017-08-10] MEDS: Furosemide 40 MG TABLET PO SCH (08:16)
[2017-08-10] MEDS: VITAMIN D3 PO SCH (08:16)
[2017-08-10] MEDS: CALCIUM CARBONATE PO SCH (08:16)
[2017-08-10] MEDS: cefTRIAXone 1,000 MG in Water for inj. (sterile) 20 ML 10 ML IVP SCH (08:16)
--- NOTE | 2017-08-10 09:11 | Internal Med Progress Note ---
<WilianJoseph - Last Filed: 08/10/17 13:31> Date of Encounter: 08/10/17 Time of Encounter: 08:00 - Assessment and plan (1) Left lower lobe pneumonia Current Visit: Yes Status: Acute Assessment and plan: SOB much improved Continue ceftriaxone and azithromycin (Day 2) Qualifiers: Pneumonia type: due to unspecified organism Qualified Code(s): J18.1 - Lobar pneumonia, unspecified organism (2) Influenza B Current Visit: Yes Status: Acute Assessment and plan: Continue Tamilfu day 2 of 5 Continue supportive care. Patient is afebrile. (3) Hypertension Current Visit: Yes Status: Chronic Assessment and plan: Controlled. Continue current medications. Qualifiers: Hypertension type: essential hypertension Qualified Code(s): I10 - Essential (primary) hypertension (4) Elevated troponin I level Current Visit: Yes Status: Acute Assessment and plan: Patient with known history of coronary artery disease, and CHF. Troponin downintrending 0.39 > 0.35 > 0.28 No chest pain Echocardiogram unchanged from previous in February 2017 Cardiology signed off, patient to follow up as outpatient (5) Atrial fibrillation Current Visit: Yes Status: Chronic Assessment and plan: HR is controlled. Patient refuses anticoagulation beyond aspirin Qualifiers: Atrial fibrillation type: paroxysmal Qualified Code(s): I48.0 - Paroxysmal atrial fibrillation (6) CHF (congestive heart failure) Current Visit: Yes Status: Chronic Assessment and plan: Chronic leg edema, no pulm edema, has pneumonia Continue ASA/Plavix/BB/Lasix Qualifiers: Congestive heart failure type: systolic Congestive heart failure chronicity : chronic Qualified Code(s): I50.22 - Chronic systolic (congestive) heart failure (7) Dyslipidemia Current Visit: Yes Status: Chronic Assessment and plan: Intolerant of statins. (8) Crohn's disease Current Visit: No Status: Chronic Assessment and plan: Stable Qualifiers: Gastrointestinal tract location: unspecified location Digestive disease complication type: unspecified complication Qualified Code(s): K50.919 - Crohn 's disease, unspecified, with unspecified complications (9) Hypothyroidism Current Visit: Yes Status: Chronic Assessment and plan: Continue home levothyroxine Qualifiers: Hypothyroidism type: unspecified Qualified Code(s): E03.9 - Hypothyroidism , unspecified (10) Diabetes Current Visit: Yes Status: Chronic Assessment and plan: A1C 6.4 Not on any meds FS ACHS Sliding scale Qualifiers: Diabetes mellitus type: type 2 Diabetes mellitus complication status: without complication Diabetes mellitus petroleum terminal plant operator insulin use: without longterm use Qualified Code(s): E11.9 - Type 2 diabetes mellitus without complications - Subjective Interval history: Feeling much better today. Denies any shortness of breath, chest pain, and palpitations. Denies fever and chills. - Constitutional Vitals: Temp Pulse Resp BP Pulse Ox 98.5 F 79 16 156/81 99 08/10/17 07:00 08/10/17 07:00 08/10/17 07:59 08/10/17 07:00 08/10/17 07:59 General appearance: Present: A&O X 3, pleasant, no acute distress, obese, answers questions appropriately - Head Head exam: Present: atraumatic, normal inspection, normocephalic - ENT ENT exam: Present: mucous membranes moist - Neck Neck exam general surgery: Present: trachea midline - Respiratory Respiratory exam: Present: rhonchi, wheezes. Absent: accessory muscle use, respiratory distress - Cardiovascular Cardiovascular exam: Present: irregular rhythm, +S1, +S2. Absent: bradycardia, tachycardia - Neurological Exam Neurological exam: Present: alert, oriented X3 - Psychiatric Psychiatric exam: Present: normal affect, normal mood. Absent: agitated, anxious - Skin Skin exam: Present: dry, warm Internal Medicine: Result - Labs CBC & Chem 7: 08/10/17 07:12 08/10/17 07:12 Labs: Short CBC 08/10/17 Range/Units 07:12 WBC 2.9 L (4.3-11.1) K/mcL Hgb 11.0 L (11.5-15.4) g/dL Hct 33.1 L (35.3-44.9) % Plt Count 87 L (140-400) K/mcL Neutrophils # 1.5 L (1.6-8.9) K/mcL BMP 08/10/17 07:12 Sodium 136 Potassium 4.1 Chloride 101 Carbon Dioxide 30 H BUN 19 Creatinine 0.84 Glucose 134 H Calcium 8.7 Cardiac Enzymes 08/09/17 Range/Units 10:25 Troponin I 0.28 H* (< 0.04) ng/mL - ABG Interpretation ABG results: PT/INR, D-dimer PT 12.7 Seconds (9.4-12.1) H 08/09/17 05:23 - Impressions Impressions Echocardiogram 08/09/17 13:57 Impressions: LVEF 35-40%. Mild concentric left ventricular hypertrophy. Indeterminate diastolic function. Moderate global and segmental left ventricular systolic dysfunction. Moderately dilated left atrium. No pulmonary hypertension. Left Ventricular Wall Motion: Rest Echo Findings The apex, apical inferior, mid inferior, basal inferior, apical anterior, mid anterior, basal anterior, apical septal, mid inferior septal, basal inferior septal, apical lateral, mid anterior lateral, basal anterior lateral, mid anterior septal and basal anterior septal parnell were hypokinetic. The mid inferior lateral and basal inferior lateral parnell were akinetic. Findings: Study Quality * Technically adequate exam. ECG Findings * Atrial fibrillation. Left Ventricle * LVEF 35-40%. * Mild concentric left ventricular hypertrophy. * Indeterminate diastolic function. * Moderate global and segmental left ventricular systolic dysfunction. * There is no LV thrombus. Right Ventricle * Normal right ventricular structure and function. Left Atrium * Moderately dilated left atrium. Right Atrium * Normal right atrial size. Aortic Valve * Aortic valve not well visualized. * Mildly sclerotic aortic valve leaflets. * No aortic regurgitation. * No aortic stenosis. Mitral Valve * Mild mitral regurgitation. Tricuspid Valve * Mild tricuspid regurgitation. Pulmonic Valve * Pulmonic valve not well visualized. Aorta * Normally sized aortic root. Pericardium * The pericardium appears normal. IVC * Normal IVC dimensions and inspiratory collapse. Consult Discharge Plan - Plan Referrals: Joseph Cedeno DO [Primary Care Provider] - <Julius Miller - Last Filed: 08/10/17 14:11> Date of Encounter: 08/10/17 - Assessment and plan (1) Pneumonia Current Visit: Yes Status: Acute Qualifiers: Pneumonia type: due to unspecified organism Laterality: left Lung location: lower lobe of lung Qualified Code(s): J18.1 - Lobar pneumonia, unspecified organism (2) Influenza B Current Visit: Yes Status: Acute (3) Hypertension Current Visit: Yes Status: Chronic Qualifiers: Hypertension type: essential hypertension Qualified Code(s): I10 - Essential (primary) hypertension (4) CKD (chronic kidney disease) stage 3, GFR 30-59 ml/min Current Visit: Yes Status: Chronic (5) Elevated troponin I level Current Visit: Yes Status: Acute (6) Atrial fibrillation Current Visit: Yes Status: Chronic Qualifiers: Atrial fibrillation type: paroxysmal Qualified Code(s): I48.0 - Paroxysmal atrial fibrillation (7) Dyslipidemia Current Visit: Yes Status: Chronic (8) Hypothyroidism Current Visit: Yes Status: Chronic Qualifiers: Hypothyroidism type: unspecified Qualified Code(s): E03.9 - Hypothyroidism , unspecified (9) CHF (congestive heart failure) Current Visit: Yes Status: Chronic Qualifiers: Congestive heart failure type: systolic Congestive heart failure chronicity : chronic Qualified Code(s): I50.22 - Chronic systolic (congestive) heart failure (10) Diabetes Current Visit: Yes Status: Chronic Qualifiers: Diabetes mellitus type: type 2 Diabetes mellitus complication status: without complication Diabetes mellitus petroleum terminal plant operator insulin use: without petroleum terminal plant operator use Qualified Code(s): E11.9 - Type 2 diabetes mellitus without complications - Constitutional Vitals: Temp Pulse Resp BP Pulse Ox 98.1 F 58 16 125/60 98 08/10/17 11:41 08/10/17 11:41 08/10/17 11:41 08/10/17 11:41 08/10/17 11:41 Internal Medicine: Result - Labs CBC & Chem 7: 08/10/17 07:12 08/10/17 07:12 Labs: Short CBC 08/10/17 Range/Units 07:12 WBC 2.9 L (4.3-11.1) K/mcL Hgb 11.0 L (11.5-15.4) g/dL Hct 33.1 L (35.3-44.9) % Plt Count 87 L (140-400) K/mcL Neutrophils # 1.5 L (1.6-8.9) K/mcL BMP 08/10/17 07:12 Sodium 136 Potassium 4.1 Chloride 101 Carbon Dioxide 30 H BUN 19 Creatinine 0.84 Glucose 134 H Calcium 8.7 - ABG Interpretation ABG results: PT/INR, D-dimer PT 12.7 Seconds (9.4-12.1) H 08/09/17 05:23 - Impressions Impressions Echocardiogram 08/09/17 13:57 Impressions: LVEF 35-40%. Mild concentric left ventricular hypertrophy. Indeterminate diastolic function. Moderate global and segmental left ventricular systolic dysfunction. Moderately dilated left atrium. No pulmonary hypertension. Left Ventricular Wall Motion: Rest Echo Findings The apex, apical inferior, mid inferior, basal inferior, apical anterior, mid anterior, basal anterior, apical septal, mid inferior septal, basal inferior septal, apical lateral, mid anterior lateral, basal anterior lateral, mid anterior septal and basal anterior septal parnell were hypokinetic. The mid inferior lateral and basal inferior lateral parnell were akinetic. Findings: Study Quality * Technically adequate exam. ECG Findings * Atrial fibrillation. Left Ventricle * LVEF 35-40%. * Mild concentric left ventricular hypertrophy. * Indeterminate diastolic function. * Moderate global and segmental left ventricular systolic dysfunction. * There is no LV thrombus. Right Ventricle * Normal right ventricular structure and function. Left Atrium * Moderately dilated left atrium. Right Atrium * Normal right atrial size. Aortic Valve * Aortic valve not well visualized. * Mildly sclerotic aortic valve leaflets. * No aortic regurgitation. * No aortic stenosis. Mitral Valve * Mild mitral regurgitation. Tricuspid Valve * Mild tricuspid regurgitation. Pulmonic Valve * Pulmonic valve not well visualized. Aorta * Normally sized aortic root. Pericardium * The pericardium appears normal. IVC * Normal IVC dimensions and inspiratory collapse. - Attending Attestation I examined this patient and my medical decision-making was reviewed with the Resident Physician on 08/10/17. I agree with the documented findings, disposition and treatment plan as described except to the extent set forth below. 71 F admitted for management of Influenza pneumonia, as well as elevated troponins No new complains ECHO resulted from 08/09 shows multiple WMA, EF 35% which is patient's baseline, per cardio, no intervention, elevated troponin due to demand. Trop down trending, patient again denies chest pain Exam: Chronic leg edema, chest with coarse breath sounds bilaterally, abdomen is benign, afebrile Continue current care, antibiotics, lasix, supportive care Trend troponins Rest as in resident physician's documentation
[2017-08-10] MEDS: Azithromycin 500 MG in D5% in Water 250 ML IVPB SCH (10:58)
[2017-08-11 05:51] LABS: Hematocrit 32.5 % (35.3-44.9); Hemoglobin 10.8 g/dL (11.5-15.4); Mean Corpuscular HGB Conc 33.2 g/dL (31.6-35.5); Mean Corpuscular Hemoglobin 29.8 pg (28.0-33.3); Mean Corpuscular Volume 89.5 fL (83.0-100.0); Mean Platelet Volume 11.9 fL (9.4-12.4); Platelet Count 108 K/mcL (140-400); Red Blood Count 3.63 M/mcL (3.82-4.97)
[2017-08-11 06:07] LABS: BUN/Creatinine Ratio 24 (6-26); Blood Urea Nitrogen 19 mg/dL (8-23); Calcium 8.9 mg/dL (8.6-10.3); Carbon Dioxide 33 mEq/L (23-29); Chloride 100 mEq/L (98-107); Glucose 132 mg/dL (70-105); Osmolality,Calculated 292 (280-300); Potassium 3.9 mEq/L (3.5-5.1); Sodium 139 mEq/L (136-145); eGFR For African Americans > 60 (> 60); eGFR For Non-African Americans > 60 (> 60)
[2017-08-11] MEDS: *HR* Heparin 5,000 UNIT/ML VIAL SQ SCH ×2 (06:31→17:44)
[2017-08-11] MEDS: Insulin LISPRO 300 UNITS/3 ML VIAL SQ SCH ×4 (07:53→23:11)
[2017-08-11] MEDS: Oseltamivir Phosphate 30 MG CAPSULE PO SCH ×2 (09:02→23:11)
[2017-08-11] MEDS: Furosemide 40 MG TABLET PO SCH (09:02)
[2017-08-11] MEDS: Anastrozole 1 MG TABLET PO SCH (09:02)
[2017-08-11] MEDS: Aspirin Enteric Coated 81 MG Tablet PO SCH (09:02)
[2017-08-11] MEDS: Valsartan 80 MG TABLET PO SCH (09:02)
[2017-08-11] MEDS: cefTRIAXone 1,000 MG in Water for inj. (sterile) 20 ML 10 ML IVP SCH (09:03)
[2017-08-11] MEDS: CALCIUM CARBONATE PO SCH (09:04)
[2017-08-11] MEDS: VITAMIN D3 PO SCH (09:04)
--- NOTE | 2017-08-11 11:06 | Internal Med Progress Note ---
Date of Encounter: 08/11/17 Time of Encounter: 11:06 - Assessment and plan (1) Pneumonia Current Visit: Yes Status: Acute Assessment and plan: Patient had respiratory symptoms and chest x-ray suggestive of bilateral atelectasis versus pneumonia. Patient is afebrile, no white count elevation, influenza positive. Continue ceftriaxone and azithromycin. Qualifiers: Pneumonia type: due to unspecified organism Laterality: left Lung location: lower lobe of lung Qualified Code(s): J18.1 - Lobar pneumonia, unspecified organism (2) Influenza B Current Visit: Yes Status: Acute Assessment and plan: Continue Tamilfu day 3 of 5 Continue supportive care, duonebs Patient is afebrile. (3) Hypertension Current Visit: Yes Status: Chronic Assessment and plan: Controlled. Continue current medications. Qualifiers: Hypertension type: essential hypertension Qualified Code(s): I10 - Essential (primary) hypertension (4) CKD (chronic kidney disease) stage 3, GFR 30-59 ml/min Current Visit: Yes Status: Chronic Assessment and plan: Renal function is at baseline. Continue to monitor. (5) Elevated troponin I level Current Visit: Yes Status: Acute Assessment and plan: Patient with known history of coronary artery disease, and CHF. Troponin downintrending 0.39 > 0.35 > 0.28> 0.10 No chest pain Echocardiogram unchanged from previous in February 2017 Cardiology signed off, patient to follow up as outpatient (6) Atrial fibrillation Current Visit: Yes Status: Chronic Assessment and plan: HR is controlled. Patient refuses anticoagulation beyond aspirin Qualifiers: Atrial fibrillation type: paroxysmal Qualified Code(s): I48.0 - Paroxysmal atrial fibrillation (7) Dyslipidemia Current Visit: Yes Status: Chronic Assessment and plan: Intolerant of statins. (8) Hypothyroidism Current Visit: Yes Status: Chronic Assessment and plan: Continue home levothyroxine Qualifiers: Hypothyroidism type: unspecified Qualified Code(s): E03.9 - Hypothyroidism , unspecified (9) CHF (congestive heart failure) Current Visit: Yes Status: Chronic Assessment and plan: Chronic leg edema, no pulm edema, has pneumonia Continue ASA/Plavix/BB/Lasix Qualifiers: Congestive heart failure type: systolic Congestive heart failure chronicity : chronic Qualified Code(s): I50.22 - Chronic systolic (congestive) heart failure (10) Diabetes Current Visit: Yes Status: Chronic Assessment and plan: A1C 6.4 Not on any meds FS ACHS Sliding scale Qualifiers: Diabetes mellitus type: type 2 Diabetes mellitus complication status: without complication 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 She has a past medical history of CHF with reduced ejection ejection fraction, ejection fraction 35-40%, atrial fibrillation not on anticoagulation by choice, hypertension and hypothyroidism. She seen and evaluated at bedside Troponin is down trending. The patient this morning states she thinks that she might need 1 more day in the hospital. She is ambulatory and since she has dyspnea on exertion. She has no chest pain. Echocardiogram was at baseline. - Constitutional Vitals: Temp Pulse Resp BP Pulse Ox 97.8 F 79 16 158/87 98 08/11/17 06:29 08/11/17 06:29 08/11/17 06:29 08/11/17 06:29 08/11/17 06:29 General appearance: Present: A&O X 3, pleasant, no acute distress, obese, answers questions appropriately - Head Head exam: Present: atraumatic, normocephalic - Eye Eye exam: Present: PERRL, conjuntiva pink, sclera anicteric Pupils: Present: PERRL - Neck Neck exam general surgery: Present: supple, trachea midline. Absent: lymphadenopathy - Respiratory Respiratory exam: Present: CTAB. Absent: accessory muscle use, rales, rhonchi, wheezes - Cardiovascular Cardiovascular exam: Present: RRR, +S1, +S2. Absent: diastolic murmur, gallop, rubs, systolic murmur - GI/Abdominal GI/Abdominal exam: Present: normal bowel sounds, soft, no peritoneal signs. Absent: distended, tenderness - Extremities Exam Extremities exam: Present: pedal edema - Neurological Exam Neurological exam: Present: alert, CN II-XII intact, oriented X3, no focal deficits. Absent: pronater drift, facial droop, speech deficit - Skin Skin exam: Present: dry, intact Internal Medicine: Result - Labs CBC & Chem 7: 08/11/17 05:32 08/11/17 05:32 Labs: Short CBC 08/11/17 Range/Units 05:32 WBC 3.1 L (4.3-11.1) K/mcL Hgb 10.8 L (11.5-15.4) g/dL Hct 32.5 L (35.3-44.9) % Plt Count 108 L (140-400) K/mcL BMP 08/11/17 05:32 Sodium 139 Potassium 3.9 Chloride 100 Carbon Dioxide 33 H BUN 19 Creatinine 0.80 Glucose 132 H Calcium 8.9 Cardiac Enzymes 08/11/17 Range/Units 05:32 Troponin I 0.10 H* (< 0.04) ng/mL - ABG Interpretation ABG results: PT/INR, D-dimer PT 12.7 Seconds (9.4-12.1) H 08/09/17 05:23 Consult Discharge Plan - Plan Referrals: Joseph Cedeno DO [Primary Care Provider] -
[2017-08-11] MEDS: Azithromycin 500 MG in D5% in Water 250 ML IVPB SCH (11:48)
[2017-08-11] MEDS: Ipratropium/Albuterol Neb 3 ML IH PRN ×2 (13:03→18:47)
[2017-08-12] MEDS: *HR* Heparin 5,000 UNIT/ML VIAL SQ SCH (06:09)
[2017-08-12] MEDS: Oseltamivir Phosphate 30 MG CAPSULE PO SCH (08:55)
[2017-08-12] MEDS: Furosemide 40 MG TABLET PO SCH (08:56)
[2017-08-12] MEDS: Anastrozole 1 MG TABLET PO SCH (08:56)
[2017-08-12] MEDS: Aspirin Enteric Coated 81 MG Tablet PO SCH (08:56)
[2017-08-12] MEDS: Valsartan 80 MG TABLET PO SCH (08:57)
[2017-08-12] MEDS: cefTRIAXone 1,000 MG in Water for inj. (sterile) 20 ML 10 ML IVP SCH (08:57)
[2017-08-12] MEDS: Insulin LISPRO 300 UNITS/3 ML VIAL SQ SCH ×2 (08:59→12:03)
[2017-08-12] MEDS ORDERED: Cholecalciferol (D-3) 1,000 UNIT TABLET PO SCH (09:00)
--- NOTE | 2017-08-12 09:01 | Discharge Summary ---
Date of Encounter: 08/12/17 Time of Encounter: 08:59 - Discharge Diagnosis (1) Pneumonia Priority: Primary Status: Acute Qualifiers: Pneumonia type: due to unspecified organism Laterality: left Lung location: lower lobe of lung Qualified Code(s): J18.1 - Lobar pneumonia, unspecified organism (2) Influenza B Priority: Primary Status: Acute (3) Hypertension Priority: Secondary Status: Chronic Qualifiers: Hypertension type: essential hypertension Qualified Code(s): I10 - Essential (primary) hypertension (4) CKD (chronic kidney disease) stage 3, GFR 30-59 ml/min Priority: Secondary Status: Chronic (5) Elevated troponin I level Priority: Primary Status: Acute (6) Atrial fibrillation Priority: Secondary Status: Chronic Qualifiers: Atrial fibrillation type: paroxysmal Qualified Code(s): I48.0 - Paroxysmal atrial fibrillation (7) Dyslipidemia Priority: Secondary Status: Chronic (8) Hypothyroidism Priority: Secondary Status: Chronic Qualifiers: Hypothyroidism type: unspecified Qualified Code(s): E03.9 - Hypothyroidism , unspecified (9) CHF (congestive heart failure) Priority: Secondary Status: Chronic Qualifiers: Congestive heart failure type: systolic Congestive heart failure chronicity : chronic Qualified Code(s): I50.22 - Chronic systolic (congestive) heart failure (10) Diabetes Priority: Secondary Status: Chronic Qualifiers: Diabetes mellitus type: type 2 Diabetes mellitus complication status: without complication Diabetes mellitus fpc insulin use: without terminal supervisor use Qualified Code(s): E11.9 - Type 2 diabetes mellitus without complications - Discharge Medications Prescriptions: Azithromycin [Zithromax] 500 mg PO Q24H #3 tablet Cefdinir [Omnicef] 300 mg PO DAILY #4 capsule Oseltamivir Phosphate [Tamiflu] 30 mg PO BID #6 capsule Home Medications: Acetaminophen [Tylenol] 500 mg PO Q6H PRN 03/02/15 [History] Aspirin Enteric Coated [Aspirin EC] 81 mg PO QAM 03/02/15 [History] Clopidogrel [Plavix] 75 mg PO QAM 03/02/15 [History] Nitroglycerin 0.4 mg SL Q5MIN PRN 12/29/15 [History] Calcium Carbonate/Vitamin D3 [Calcium 600 + Vit D Tablet] 1 tab PO DAILY [History] Anastrozole [Arimidex] 1 mg PO DAILY #90 tablet 10/24/16 [Rx] Levothyroxine [Synthroid] 125 mcg PO DAILY 03/22/17 [History] Furosemide [Lasix] 40 mg PO QAM #30 tablet 04/30/17 [Rx] Valsartan [Diovan] 80 mg PO DAILY #30 tablet 04/30/17 [Rx] Carvedilol [Coreg] 12.5 mg PO BIDWM 08/08/17 [History] Azithromycin [Zithromax] 500 mg PO Q24H #3 tablet 08/12/17 [Rx] Cefdinir [Omnicef] 300 mg PO DAILY #4 capsule 08/12/17 [Rx] Oseltamivir Phosphate [Tamiflu] 30 mg PO BID #6 capsule 08/12/17 [Rx] Allergies/Adverse Reactions: 3 Allergy/AdvReac Type Severity Reaction Status Date / Time simvastatin AdvReac Nausea Verified 03/22/17 17:16 Procedures/tests Complete & Pending: Procedures Performed prior 72 hours Category Date Time Status EV echocardiogram Routine Y 08/09/17 13:57 Completed Date of admission: 08/08/17 10:41 Primary care physician: Joseph Cedeno DO Consults: 08/08/17 12:29 Consult to Cardiology [CONS] Routine Comment: Consulting Provider: Cardiology Rox Reason for Consult: positive troponin Call Completed: Yes Discharging clinician: Julius Miller Anticipated date of discharge: 08/12/17 - Patient Status Disposition: Home Health Service Condition: Good Functional capacity at discharge: independent ambulation Overall status at discharge: patient is back to baseline - Discharge Instructions Follow Up With: Joseph Cedeno DO [Primary Care Provider] - - Diet and Activity Activity: resume usual activities as tolerated Diet: low fat, low cholesterol, low salt diet Interval History: See below Hospital course: Ms. Lemos is a 71 year old female with PMH of CHFrEF with ef 30-35%, diabetes mellitus, hypothyroidism, hypertension, history of breast cancer. Was admitted and managed for influenza B infection, and left lower lobe pneumonia. There was also an incidental finding of elevated troponins without chest pain. She had presented with respiratory symptoms with a chest x-ray suggestive of bilateral atelectasis versus pneumonia. She was afebrile with no leukocytosis, improving. He testing was positive. The patient describes dry without sputum production. Cardiology was consulted for elevated troponin levels, EKG was unremarkable, peak troponin was 0.39. Repeat echocardiogram done August 09 shows ejection fraction at baseline, no new changes. Global hypokinesis persists. Cardiology evaluation, patient does not warrant any intervention. She has been managed with intravenous antibiotics, supportive care as well as Tamiflu. She has received 3 days of intravenous antibiotics 3 days of Tamiflu. She was seen and evaluated this morning at the bedside, she has no new complaints, she is ambulatory. Her cough persists but is improving. She is medically stable to be discharged home for 3 more days of antibiotics and 2 more days of Tamiflu. She has an upcoming follow-up with cardiology, and is recommended that she follows up with her primary care physician. Home medications were unchanged, and she should continue the same. Plan of care was discussed with the patient, she verbalized understanding. - Time Spent with Patient Total time spent providing and/or coordinating discharge services: Greater than 30 minutes - Constitutional Vitals: Temp Pulse Resp BP Pulse Ox 97.8 F 73 17 165/81 95 08/12/17 07:37 08/12/17 07:37 08/12/17 07:37 08/12/17 07:37 08/12/17 07:37 General appearance: Present: A&O X 3, pleasant, no acute distress, obese, answers questions appropriately - Head Head exam: Present: atraumatic, normocephalic - Eye Eye exam: Present: PERRL, conjuntiva pink, sclera anicteric Pupils: Present: PERRL - Neck Neck exam general surgery: Present: supple, trachea midline. Absent: lymphadenopathy - Respiratory Respiratory exam: Absent: tachypnea Additional comments: transmitted breath sounds bilaterally, no crackles. No wheezing. - Cardiovascular Cardiovascular exam: Present: irregular rhythm, +S1, +S2. Absent: diastolic murmur, gallop, rubs, systolic murmur - GI/Abdominal GI/Abdominal exam: Present: normal bowel sounds, soft, no peritoneal signs. Absent: distended, tenderness - Extremities Exam Extremities exam: Present: pedal edema (chronic, non-piting), warm, radial pulses palpable and symmetrical. Absent: calf tenderness, cyanotic - Neurological Exam Neurological exam: Present: alert, CN II-XII intact, oriented X3, no focal deficits. Absent: pronater drift, facial droop, speech deficit - Skin Skin exam: Present: dry, intact
[2017-08-12] MEDS ORDERED: Azithromycin 250 MG TABLET PO SCH (11:00)
[2017-08-12 11:34] VITALS: BP 149/90
== END 2017-08-12 17:03 | disposition home or self-care (01) | DRG 194 ==
LOC: 3NENU 01:07 → 3ANU 01:07 → EMEROO 01:07 → 3NENU 05:36 → SUATTDRO 10:41 → 3ANU 08-12 10:49
PROVIDERS: ADMIT Internal Medicine; ATTEND Internal Medicine

== ENCOUNTER 2020-01-08 16:27 | Inpatient (IN) ==
[2020-01-08] MEDS ORDERED: 0.9 % Sodium Chloride 500 ML IVC ONE (16:36)
[2020-01-08 17:08] LABS: Basophils % 0.7 %; Eosinophils # 0.1 K/mcL (0.0-0.6); Eosinophils % 2.3 %; Hematocrit 39.8 % (35.3-44.9); Hemoglobin 12.8 g/dL (11.5-15.4); Immature Granulocytes % 0.5 % (0-4); Lymphocytes # 1.1 K/mcL (0.6-4.6); Lymphocytes % 25.1 %; Mean Corpuscular HGB Conc 32.2 g/dL (31.6-35.5); Mean Corpuscular Hemoglobin 30.3 pg (28.0-33.3); Mean Corpuscular Volume 94.3 fL (83.0-100.0); Mean Platelet Volume 11.3 fL (9.4-12.4); Monocytes # 0.4 K/mcL (0.0-1.3); Monocytes % 8.2 %; Neutrophils # 2.8 K/mcL (1.6-8.9); Platelet Count 136 K/mcL (140-400); Red Blood Count 4.22 M/mcL (3.82-4.97); Red Cell Distribution Width 13.9 % (11.5-14.5); Segmented Neutrophils % 63.2 %; White Blood Count 4.4 K/mcL (4.3-11.1)
[2020-01-08 17:17] LABS: INR 1.1; Prothrombin Time 12.6 Seconds (9.4-12.1)
[2020-01-08 17:20] LABS: Activated Partial Thrombo Time 29.6 Seconds (26.0-36.0)
[2020-01-08 17:34] LABS: Alanine Aminotransferase 37 Units/L (7-52); Albumin 3.8 g/dL (3.5-5.7); Albumin/Globulin Ratio 1.2 (1.1-2.2); Alkaline Phosphatase 140 Units/L (34-104); Aspartate Amino Transferase 46 Units/L (13-39); BUN/Creatinine Ratio 19 (6-26); Bilirubin,Total 0.4 mg/dL (0.3-1.0); Blood Urea Nitrogen 19 mg/dL (8-23); Calcium 9.5 mg/dL (8.6-10.3); Carbon Dioxide 28 mEq/L (23-29); Chloride 97 mEq/L (98-107); Globulin 3.2 g/dL (2.4-3.5); Glucose 326 mg/dL (70-105); Osmolality,Calculated 291 (280-300); Potassium 3.7 mEq/L (3.5-5.1); Sodium 133 mEq/L (136-145); Troponin I 0.03 ng/mL (< 0.04); eGFR For African Americans > 60 (> 60); eGFR For Non-African Americans 55 (> 60)
[2020-01-08 17:36] LABS: Bilirubin,Urine Negative (Negative); Blood,Urine Negative (Negative); Clarity,Urine Clear (Clear); Color,Urine Yellow (Yellow); Glucose,Urine (UA) 500 mg/dL (Normal); Ketones,Urine Negative (Negative); Leukocyte Esterase,Urine Moderate (Negative); Nitrite,Urine Negative (Negative); Protein,Urine Negative (Neg-Trace); Specific Gravity,Urine 1.012 (1.010-1.025); Urobilinogen,Urine Normal (Normal)
[2020-01-08 17:39] LABS: Bacteria,Urine None Seen per hpf (None-Few); Hyaline Casts,Urine None Seen per lpf (None-Few); RBC,Urine 0-3 per hpf (0-3); Squamous Epithelial Cell,Urine Moderate per lpf (None-Few); WBC,Urine 15-30 per hpf (0-3)
[2020-01-08] MEDS ORDERED: cefTRIAXone 1,000 MG in 0.9 % Sodium Chloride Mini Bag 100 ML IVPB ONE (17:53)
[2020-01-08 19:13] LABS: Magnesium 1.8 mg/dL (1.6-2.6); Phosphorous 2.9 mg/dL (2.7-4.5)
[2020-01-09] MEDS ORDERED: GuaiFENesin Liq 200 MG/10 ML UDC PO ONE (00:31)
[2020-01-09 01:25] LABS: Hematocrit 36.8 % (35.3-44.9); Hemoglobin 12.1 g/dL (11.5-15.4); Immature Platelets 6.9 % (1.1-6.1); Mean Corpuscular HGB Conc 32.9 g/dL (31.6-35.5); Mean Corpuscular Volume 91.1 fL (83.0-100.0); Mean Platelet Volume 11.5 fL (9.4-12.4); Red Blood Count 4.04 M/mcL (3.82-4.97); Red Cell Distribution Width 13.7 % (11.5-14.5); White Blood Count 5.4 K/mcL (4.3-11.1)
[2020-01-09 01:54] LABS: BUN/Creatinine Ratio 20 (6-26); Blood Urea Nitrogen 17 mg/dL (8-23); Calcium 9.1 mg/dL (8.6-10.3); Carbon Dioxide 29 mEq/L (23-29); Chloride 98 mEq/L (98-107); Chol/HDL Ratio 4.3 (0-4.9); Glucose 316 mg/dL (70-105); Magnesium 1.8 mg/dL (1.6-2.6); Osmolality,Calculated 296 (280-300); Phosphorous 2.8 mg/dL (2.7-4.5); Potassium 3.7 mEq/L (3.5-5.1); Sodium 136 mEq/L (136-145); eGFR For African Americans > 60 (> 60); eGFR For Non-African Americans > 60 (> 60)
[2020-01-09 02:06] LABS: Thyroid Stimulating Hormone 1.685 mcIU/mL (0.340-5.600)
[2020-01-09] MEDS ORDERED: lisinopriL 10 MG TABLET PO SCH (09:00)
[2020-01-09] MEDS ORDERED: Dextrose Gel 15 GM/37.5 ML TUBE PO PRN ×2 (09:48)
[2020-01-09] MEDS ORDERED: D5% in Water 1,000 ML IVC PRN (09:48)
[2020-01-09] MEDS ORDERED: *HR* Dextrose 50 % in Water (Syg) 50 ML SYRINGE IVP PRN (09:48)
[2020-01-09] MEDS: Anastrozole 1 MG TABLET PO SCH (10:17)
[2020-01-09] MEDS: Cyanocobalamin (B-12) 1,000 MCG TABLET PO SCH (10:17)
[2020-01-09] MEDS: Furosemide 40 MG TABLET PO SCH (10:17)
[2020-01-09] MEDS: Aspirin Enteric Coated 81 MG Tablet PO SCH (10:17)
[2020-01-09] MEDS ORDERED: Metoprolol XL (24 HR) Succ 25 MG TAB.ER.24H PO SCH (11:30)
[2020-01-09] MEDS: Insulin LISPRO 300 UNITS/3 ML VIAL SQ SCH ×3 (14:41→20:52)
[2020-01-10 06:02] LABS: Hematocrit 38.3 % (35.3-44.9); Hemoglobin 12.1 g/dL (11.5-15.4); Immature Platelets 7.9 % (1.1-6.1); Mean Corpuscular HGB Conc 31.6 g/dL (31.6-35.5); Mean Corpuscular Hemoglobin 29.4 pg (28.0-33.3); Mean Platelet Volume 11.1 fL (9.4-12.4); Red Blood Count 4.12 M/mcL (3.82-4.97); White Blood Count 5.2 K/mcL (4.3-11.1)
[2020-01-10 06:20] LABS: Calcium 9.1 mg/dL (8.6-10.3); Potassium 3.7 mEq/L (3.5-5.1)
[2020-01-10 09:07] LABS: Estimated Average Glucose 214 mg/dl
[2020-01-10] MEDS: Aspirin Enteric Coated 81 MG Tablet PO SCH (09:08)
[2020-01-10] MEDS: Anastrozole 1 MG TABLET PO SCH (09:09)
[2020-01-10] MEDS: Furosemide 40 MG TABLET PO SCH (09:09)
[2020-01-10] MEDS: Cyanocobalamin (B-12) 1,000 MCG TABLET PO SCH (09:09)
[2020-01-10] MEDS: Insulin LISPRO 300 UNITS/3 ML VIAL SQ SCH ×4 (09:10→20:35)
[2020-01-10] MEDS ORDERED: Ondansetron 4 MG/2 ML VIAL IVP PRN (10:55)
[2020-01-10] MEDS: Metoprolol XL (24 HR) Succ 25 MG TAB.ER.24H PO SCH (13:31)
[2020-01-10] MEDS: Insulin DETEMIR 100 UNIT/ML X5UNITS SQ SCH (20:35)
[2020-01-11] MEDS ORDERED: Regadenoson 0.4 MG/5 ML SYRINGE IVP ONE (06:30)
[2020-01-11] MEDS: Cyanocobalamin (B-12) 1,000 MCG TABLET PO SCH (09:23)
[2020-01-11] MEDS: Anastrozole 1 MG TABLET PO SCH (09:23)
[2020-01-11] MEDS: Furosemide 40 MG TABLET PO SCH (09:23)
[2020-01-11] MEDS: Metoprolol XL (24 HR) Succ 25 MG TAB.ER.24H PO SCH (09:24)
[2020-01-11] MEDS: Insulin DETEMIR 100 UNIT/ML X5UNITS SQ SCH ×2 (09:24→20:19)
[2020-01-11] MEDS: Insulin LISPRO 300 UNITS/3 ML VIAL SQ SCH ×4 (09:29→19:43)
[2020-01-11] MEDS: Aspirin Enteric Coated 81 MG Tablet PO SCH (09:31)
[2020-01-12 03:02] LABS: BUN/Creatinine Ratio 29 (6-26); Blood Urea Nitrogen 30 mg/dL (8-23); Calcium 9.4 mg/dL (8.6-10.3); Carbon Dioxide 33 mEq/L (23-29); Chloride 96 mEq/L (98-107); Glucose 216 mg/dL (70-105); Osmolality,Calculated 295 (280-300); Potassium 3.9 mEq/L (3.5-5.1); Sodium 136 mEq/L (136-145); eGFR For African Americans > 60 (> 60); eGFR For Non-African Americans 52 (> 60)
[2020-01-12] MEDS: Insulin LISPRO 300 UNITS/3 ML VIAL SQ SCH ×4 (07:42→20:09)
[2020-01-12] MEDS: Cyanocobalamin (B-12) 1,000 MCG TABLET PO SCH (07:43)
[2020-01-12] MEDS: Furosemide 40 MG TABLET PO SCH (07:43)
[2020-01-12] MEDS: Insulin DETEMIR 100 UNIT/ML X5UNITS SQ SCH ×2 (07:43→20:07)
[2020-01-12] MEDS: Metoprolol XL (24 HR) Succ 25 MG TAB.ER.24H PO SCH (07:43)
[2020-01-12] MEDS: Aspirin Enteric Coated 81 MG Tablet PO SCH (07:43)
[2020-01-12] MEDS: Anastrozole 1 MG TABLET PO SCH (07:43)
[2020-01-12] MEDS ORDERED: 0.9 % Sodium Chloride 2,000 ML ONE (09:11)
[2020-01-12] MEDS ORDERED: ISOVUE-370 200 ML INFUS..BTL ONE (09:12)
[2020-01-12] MEDS ORDERED: Heparin 1,000 UNITS/500 mL 500 ML ONE ×2 (09:12→10:36)
[2020-01-12] MEDS ORDERED: *HR* Heparin 10,000 UNIT/10 ML VIAL ONE (09:12)
[2020-01-12] MEDS ORDERED: Nitroglycerin 1,000 MCG/10 ML VIAL IV ONE (09:12)
[2020-01-12] MEDS ORDERED: *HR* Midazolam HCl 2 MG/2 ML VIAL ONE (09:41)
[2020-01-12] MEDS ORDERED: *HR* FentaNYL (PF) 100 MCG/2 ML VIAL ONE (09:41)
[2020-01-13 06:12] LABS: Hematocrit 37.5 % (35.3-44.9); Hemoglobin 12.2 g/dL (11.5-15.4); Mean Corpuscular HGB Conc 32.5 g/dL (31.6-35.5); Mean Corpuscular Hemoglobin 30.5 pg (28.0-33.3); Mean Corpuscular Volume 93.8 fL (83.0-100.0); Mean Platelet Volume 11.6 fL (9.4-12.4); Platelet Count 122 K/mcL (140-400); Red Cell Distribution Width 13.9 % (11.5-14.5); White Blood Count 4.8 K/mcL (4.3-11.1)
[2020-01-13 06:30] LABS: BUN/Creatinine Ratio 25 (6-26); Blood Urea Nitrogen 26 mg/dL (8-23); Calcium 9.6 mg/dL (8.6-10.3); Carbon Dioxide 35 mEq/L (23-29); Chloride 98 mEq/L (98-107); Glucose 146 mg/dL (70-105); Osmolality,Calculated 291 (280-300); Potassium 4.3 mEq/L (3.5-5.1); Sodium 137 mEq/L (136-145); eGFR For African Americans > 60 (> 60); eGFR For Non-African Americans 52 (> 60)
[2020-01-13 07:49] VITALS: BP 163/90
[2020-01-13] MEDS: Anastrozole 1 MG TABLET PO SCH (07:56)
[2020-01-13] MEDS: Cyanocobalamin (B-12) 1,000 MCG TABLET PO SCH (07:56)
[2020-01-13] MEDS: Aspirin Enteric Coated 81 MG Tablet PO SCH (07:56)
[2020-01-13] MEDS: Metoprolol XL (24 HR) Succ 25 MG TAB.ER.24H PO SCH (07:56)
[2020-01-13] MEDS: Furosemide 40 MG TABLET PO SCH (07:56)
[2020-01-13] MEDS: Insulin DETEMIR 100 UNIT/ML X5UNITS SQ SCH (08:01)
[2020-01-13] MEDS: Insulin LISPRO 300 UNITS/3 ML VIAL SQ SCH ×3 (08:02→17:34)
== END 2020-01-13 17:30 | disposition home or self-care (01) | DRG 249 ==
LOC: 3BNU 16:27 → EMEROOARM 16:27 → 3BNU 18:41
PROVIDERS: ADMIT Internal Medicine; ATTEND Internal Medicine

== ENCOUNTER 2020-01-18 16:50 | Observation (INO) ==
[2020-01-18 17:22] LABS: Basophils % 0.5 %; Eosinophils # 0.2 K/mcL (0.0-0.6); Eosinophils % 2.5 %; Hematocrit 39.4 % (35.3-44.9); Hemoglobin 12.9 g/dL (11.5-15.4); Immature Granulocytes % 0.6 % (0-4); Lymphocytes % 30.4 %; Mean Corpuscular HGB Conc 32.7 g/dL (31.6-35.5); Mean Corpuscular Hemoglobin 30.6 pg (28.0-33.3); Mean Corpuscular Volume 93.6 fL (83.0-100.0); Mean Platelet Volume 11.3 fL (9.4-12.4); Monocytes # 0.5 K/mcL (0.0-1.3); Monocytes % 8.4 %; Neutrophils # 3.7 K/mcL (1.6-8.9); Platelet Count 150 K/mcL (140-400); Red Blood Count 4.21 M/mcL (3.82-4.97); Segmented Neutrophils % 57.6 %; White Blood Count 6.4 K/mcL (4.3-11.1)
[2020-01-18 17:54] LABS: Troponin I 0.04 ng/mL (< 0.04)
[2020-01-18 17:55] LABS: BUN/Creatinine Ratio 23 (6-26); Blood Urea Nitrogen 23 mg/dL (8-23); Calcium 8.9 mg/dL (8.6-10.3); Carbon Dioxide 29 mEq/L (23-29); Chloride 100 mEq/L (98-107); Glucose 218 mg/dL (70-105); Osmolality,Calculated 296 (280-300); Potassium 3.5 mEq/L (3.5-5.1); Sodium 138 mEq/L (136-145); eGFR For African Americans > 60 (> 60); eGFR For Non-African Americans 54 (> 60)
[2020-01-18] MEDS ORDERED: Naloxone 0.4 MG/ML INJ IVP PRN (19:39)
[2020-01-18] MEDS ORDERED: *HR* Dextrose 50 % in Water (Vial) 50 ML VIAL IVP PRN (20:48)
[2020-01-18] MEDS ORDERED: Dextrose Gel 15 GM/37.5 ML TUBE PO PRN ×2 (20:48)
[2020-01-18] MEDS ORDERED: D5% in Water 1,000 ML IVC PRN (20:48)
[2020-01-18] MEDS: *HR* Heparin 5,000 UNIT/ML VIAL SQ SCH (23:14)
[2020-01-19] MEDS ORDERED: Nitroglycerin 0.4 MG TAB.SUBL SL PRN (01:04)
[2020-01-19] MEDS: *HR* Heparin 5,000 UNIT/ML VIAL SQ SCH ×3 (06:38→21:28)
[2020-01-19 06:54] LABS: Basophils % 0.9 %; Eosinophils # 0.1 K/mcL (0.0-0.6); Eosinophils % 2.7 %; Hematocrit 37.2 % (35.3-44.9); Hemoglobin 11.9 g/dL (11.5-15.4); Immature Granulocytes % 0.5 % (0-4); Lymphocytes % 22.4 %; Mean Corpuscular Hemoglobin 29.8 pg (28.0-33.3); Mean Platelet Volume 11.6 fL (9.4-12.4); Monocytes # 0.4 K/mcL (0.0-1.3); Monocytes % 8.6 %; Neutrophils # 2.9 K/mcL (1.6-8.9); Platelet Count 124 K/mcL (140-400); Red Cell Distribution Width 13.8 % (11.5-14.5); Segmented Neutrophils % 64.9 %; White Blood Count 4.4 K/mcL (4.3-11.1)
[2020-01-19 07:18] LABS: BUN/Creatinine Ratio 24 (6-26); Blood Urea Nitrogen 19 mg/dL (8-23); Calcium 9.2 mg/dL (8.6-10.3); Carbon Dioxide 31 mEq/L (23-29); Chloride 102 mEq/L (98-107); Glucose 150 mg/dL (70-105); Osmolality,Calculated 293 (280-300); Potassium 3.7 mEq/L (3.5-5.1); Sodium 139 mEq/L (136-145); eGFR For African Americans > 60 (> 60); eGFR For Non-African Americans > 60 (> 60)
[2020-01-19] MEDS: Aspirin Enteric Coated 81 MG Tablet PO SCH (07:36)
[2020-01-19] MEDS: Furosemide 40 MG TABLET PO SCH (07:36)
[2020-01-19] MEDS: Anastrozole 1 MG TABLET PO SCH (07:36)
[2020-01-19] MEDS: Metoprolol XL (24 HR) Succ 25 MG TAB.ER.24H PO SCH (07:37)
[2020-01-19] MEDS: Cyanocobalamin (B-12) 1,000 MCG TABLET PO SCH (07:37)
[2020-01-19] MEDS: Insulin LISPRO 300 UNITS/3 ML VIAL SQ SCH ×3 (07:40→15:58)
[2020-01-19] MEDS ORDERED: LOVASTATIN 10 MG PO SCH (21:00)
[2020-01-20 04:16] VITALS: BP 143/71
[2020-01-20] MEDS: *HR* Heparin 5,000 UNIT/ML VIAL SQ SCH (04:54)
[2020-01-20 06:08] LABS: Hematocrit 36.5 % (35.3-44.9); Hemoglobin 11.8 g/dL (11.5-15.4); Mean Corpuscular HGB Conc 32.3 g/dL (31.6-35.5); Mean Corpuscular Hemoglobin 30.1 pg (28.0-33.3); Mean Corpuscular Volume 93.1 fL (83.0-100.0); Mean Platelet Volume 12.1 fL (9.4-12.4); Platelet Count 119 K/mcL (140-400); Red Blood Count 3.92 M/mcL (3.82-4.97); Red Cell Distribution Width 13.9 % (11.5-14.5); White Blood Count 4.8 K/mcL (4.3-11.1)
[2020-01-20 06:13] LABS: BUN/Creatinine Ratio 22 (6-26); Blood Urea Nitrogen 22 mg/dL (8-23); Calcium 9.3 mg/dL (8.6-10.3); Carbon Dioxide 31 mEq/L (23-29); Chloride 101 mEq/L (98-107); Glucose 156 mg/dL (70-105); Osmolality,Calculated 291 (280-300); Potassium 3.9 mEq/L (3.5-5.1); Sodium 137 mEq/L (136-145); eGFR For African Americans > 60 (> 60); eGFR For Non-African Americans 55 (> 60)
[2020-01-20] MEDS: Aspirin Enteric Coated 81 MG Tablet PO SCH (07:39)
[2020-01-20] MEDS: Metoprolol XL (24 HR) Succ 25 MG TAB.ER.24H PO SCH (07:40)
[2020-01-20] MEDS: Cyanocobalamin (B-12) 1,000 MCG TABLET PO SCH (07:40)
[2020-01-20] MEDS: Anastrozole 1 MG TABLET PO SCH (07:40)
[2020-01-20] MEDS: Furosemide 40 MG TABLET PO SCH (07:41)
[2020-01-20] MEDS: Insulin LISPRO 300 UNITS/3 ML VIAL SQ SCH ×2 (07:45→12:06)
== END 2020-01-20 14:10 | disposition home health service (06) ==
LOC: EMEROOARM 16:50 → 3BNU 16:50 → SUATTDRO 20:00 → 3BNU 20:47
PROVIDERS: ADMIT Internal Medicine; ATTEND Internal Medicine